=== PATIENT | female | born 1995 | race Caucasian/White ===

== ENCOUNTER → 2018-03-16 16:50 | Outpatient (CLI) | payer BC, SELFPAY ==
[2018-03-16 19:00] LABS: Chlamydia Trachomatis by PCR Negative (Negative); Neisserai gonorrhoeae by PCR Negative (Negative); Probe Check PASS; Sample Adequacy Control PASS; Specimen Processing Control PASS
== END ==
PROVIDERS: Visit Provider Obstetrics & Gynecology
DX: Z11.3 Encounter for screening for infections with a predominantly sexual mode of transmission (principal)
CPT/HCPCS: 87491; 87591

== ENCOUNTER → 2018-03-30 15:31 | Outpatient (CLI) | payer BC, SELFPAY ==
[2018-03-30 16:47] LABS: Color, Urine Yellow (Yellow); Glucose, Dipstick Normal (Normal); Ketone-Dipstick Negative (Negative); Leukocyte Esterase-Dipstick Negative /ul (Negative); Nitrite-Dipstick Negative (Negative); Occult Blood-Urine Negative /ul (Negative); Protein-Dipstick Negative (Negative); Urine Bilirubin Dipstick Negative (Negative); Urine Clarity Clear (Clear); Urine Urobilinogen Normal (Normal)
[2018-03-30 17:10] LABS: Amphetamine Urine VISTA NEGATIVE (<1000 ng/mL); Barbiturate Urine VISTA NEGATIVE (< 200 ng/mL); Benzodiazepine Urine VISTA NEGATIVE (< 200 ng/mL); Cocaine Urine VISTA NEGATIVE (< 300 ng/mL); Ecstacy Urine VISTA NEGATIVE (< 500 ng/mL); Methadone Urine VISTA NEGATIVE (< 300 ng/mL); PCP Urine VISTA NEGATIVE (< 25 ng/mL); THC Urine VISTA NEGATIVE (< 50 ng/mL); Vista UDS pH Range 6
[2018-03-30 17:44] LABS: Absolute Lymphocyte Count 1.38 X10^3/ul (0.83-4.51); Absolute Neutrophil Count 4.5 X10^3/uL (2.0-7.7); Basophil# 0.02 X10^3/uL; Basophil% 0.3 % (0-1); Eosinophil# 0.07 X10^3/uL; Eosinophils% 1.1 % (0-5); Hematocrit 39.4 % (37-47); Hemoglobin 13.6 g/dl (12.0-15.0); Lymphocyte # 1.38 X10^3/ul (4.0); Lymphocyte % 21.8 % (19-41); Mean Corp Hgb Conc 34.5 g/gl (32-36); Mean Corpuscular Hgb 31.1 pg (27.0-32.0); Mean Corpuscular Volume 90.2 fL (81-99); Mean Platelet Vol. 10.9 fl (6.2-12.0); Monocyte# 0.37 X10^3/uL; Monocyte% 5.8 % (0-10); Neutrophil # 4.49 X10^3/uL (2.7-7.7); Neutrophil % 70.8 % (47-70); Platelet Count 195 K/mm3 (150-450); RBC Distribution Width CV 12.8 % (11.6-14.6); RBC Distribution Width SD 41.6 fl (35.1-43.9); Red Blood Count 4.37 M/mm3 (4.2-5.4); White Blood Count 6.3 K/mm3 (4.4-11.0)
[2018-03-30 17:47] LABS: POSITIVE COUNT NO; POSITIVE DIFFERENTIAL NO; POSITIVE MORPHOLOGY NO
[2018-03-30 18:05] LABS: Thyroid Stim Hormone (TSH) 0.52 uIU/mL (0.358-3.74)
[2018-03-30 18:53] LABS: HIV - WCH Non-Reactive (Nonreactive); Rubella IgG 90.3 IU/mL
[2018-04-02 08:44] LABS: HEPATITIS B SURFACE AG Negative (Negative); Hep C Antibodies 0.2 s/co ratio (0.0-0.9)
[2018-04-06 07:38] LABS: Prenatal RPR NONREACTIVE (NONREACTIVE)
== END ==
PROVIDERS: Visit Provider Obstetrics & Gynecology
DX: Z34.81 Encounter for supervision of other normal pregnancy, first trimester (principal)
CPT/HCPCS: 36415; 80307; 81002; 84443; 85025; 86703; 86762; 86803; 87340

== ENCOUNTER → 2018-08-24 | Outpatient (CLI) | payer BC, SELFPAY ==
[2018-08-24 10:50] LABS: Hematocrit 34.4 % (37-47); Hemoglobin 11.4 g/dl (12.0-15.0); Mean Corp Hgb Conc 33.1 g/gl (32-36); Mean Corpuscular Hgb 31.1 pg (27.0-32.0); Mean Corpuscular Volume 93.7 fL (81-99); Mean Platelet Vol. 10.2 fl (6.2-12.0); Platelet Count 177 K/mm3 (150-450); RBC Distribution Width SD 44.2 fl (35.1-43.9); Red Blood Count 3.67 M/mm3 (4.2-5.4); Scan Indicated on CBC? Y/N NO
[2018-08-24 10:56] LABS: Glucose Challenge Gest 1H 50g 92 mg/dL (70-140)
== END | disposition home or self-care (01) ==
LOC: LABSPEC 09:27
PROVIDERS: Visit Provider Obstetrics & Gynecology
DX: Z34.83 Encounter for supervision of other normal pregnancy, third trimester (principal)
CPT/HCPCS: 82950; 85027

== ENCOUNTER → 2018-10-12 | Outpatient (CLI) | payer BC, SELFPAY | END | disposition home or self-care (01) | LOC: LABSPEC 14:00 | PROVIDERS: Visit Provider Obstetrics & Gynecology | DX: Z36.85 Encounter for antenatal screening for Streptococcus B (principal) | CPT/HCPCS: 87081 ==

== ENCOUNTER 2018-11-15 07:00 | Inpatient (IN) | payer BC, SELFPAY ==
--- NOTE | 2018-11-15 07:13 | PCM.HPOB.BLA ---
History and Physical Date of Admission: 11/15/18 OB HISTORY AND PHYSICAL EXAMINATION History of this : 23 yo female Ab0 with EDC 11/08/2018 by Ultrasound, presents to Labor and Delivery for induction of labor, postdates at 41 wk EGA with favorable cervix. care remarkable for : A positive GBS negative. Rubella immune 1.) Soft markers for aneuploidy noted on sono: bilateral choroid plexus cysts, echogenic focus in heart. Debris in stomach -- normal cell free DNA. 2.) Hx of UTI's 3.) MSAFP and CF testing declined 4.) Born with Pectus Excavatum 5.) Allergic to LATEX!! Pertinent Past Medical History: None. Allergies: Latex Medications: During - ferrous gluconate 324 mg (37.5 mg iron) tablet; 28 mg iron-800 mcg tablet Review of Systems: Non-contributory PHYSICAL EXAMINATION General Appearance: 23 yo female in no acute distress Vital Signs: AF, VSS Lungs: regular rate and rhythm. Breasts: deferred Abdomen: gravid Pelvis: Cervix: 4/80/soft/midpostion / -2 AROM clear fluid. Presentation: cephalic AGA Movement: present Very active , audible movement. Heart: UCs q 6- 9 min or so. One deceleration to 120s noted on initial monitor placement. Active FM. FHR 150-160s with avg variability Accels . Category I tracing since. Impression /Plan: Intrauterine . 41 wk induction of labor. AROM Clear fluid. Begin Pitocin-- started at 2 mIU/min Watch progress, descent, tolerance of labor. Plans no epidural at this point. H and P generated at time of patient admission, exam. See Progress notes for changes. Pierre Medina MD 11/15/18 [id number]
[2018-11-15 07:27] VITALS: BMI 22.8
[2018-11-15] MEDS: Lactated Ringers 1,000 ML 50 ML IV (07:40)
[2018-11-15] MEDS: Oxytocin 30 units/NS 500 ml 30 UNITS/500 ML IV.SOLN IV (08:00)
[2018-11-15 08:04] LABS: Absolute Lymphocyte Count 1.02 X10^3/uL (0.83-4.51); Absolute Neutrophil Count 10.7 X10^3/uL (2.0-7.7); Basophil# 0.02 X10^3/uL; Basophil% 0.2 % (0-1); Eosinophil# 0.12 X10^3/uL; Hematocrit 38.2 % (37-47); Hemoglobin 12.9 g/dL (12.0-15.0); Lymphocyte # 1.02 X10^3/ul (4.0); Lymphocyte % 8.3 % (19-41); Mean Corp Hgb Conc 33.8 g/dL (32-36); Mean Corpuscular Hgb 31.9 pg (27.0-32.0); Mean Corpuscular Volume 94.6 fL (81-99); Mean Platelet Vol. 11.2 fl (6.2-12.0); Monocyte# 0.43 X10^3/uL; Monocyte% 3.5 % (0-10); NRBC Flagged by Analyzer 0 % (0-5); Neutrophil % 86.7 % (47-70); Platelet Count 139 K/mm3 (150-450); RBC Distribution Width CV 14.6 % (11.6-14.6); RBC Distribution Width SD 50.4 fl (35.1-43.9); Red Blood Count 4.04 M/mm3 (4.2-5.4); White Blood Count 12.3 K/mm3 (4.4-11.0)
--- NOTE | 2018-11-15 12:11 | PCM.PN.BLA ---
Progress Note LABOR PROGRESS NOTE Feeling more UCs Declines epidural Back massage, essential oils. AVSS pitocin at 4 mIU/min EFM 150-160s avg variability Accels. UCs q 3-4 mins CX: 6/-1 per RN check at 1130 A/P: 41 wk induction postdates. Adequate progress, Continue labor. Category I tracing.
[2018-11-15] MEDS: Nalbuphine 10 MG/ML Ampul IV (12:31)
[2018-11-15] MEDS: Ondansetron 4 MG/2 ML Vial IV (12:31)
[2018-11-15] MEDS: proCHLORPERazine 10 MG/2 ML Vial IV (14:40)
--- NOTE | 2018-11-15 15:33 | PCM.PN.BLA ---
Progress Note LABOR PROGRESS NOTE Painful Nitrous and breathing AVSS pitocin EFM 130-140s avg variability Accels. UCs q 3-4 mins CX: thin lip to R side, now lying on R side -1 no urge to push. A/P: 41 wk induction AROM Pitocin progress to nearly complete. Continue labor Category I tracing.
[2018-11-15] MEDS: Lactated Ringers 1,000 ML 200 ML IV (15:57)
[2018-11-15] MEDS: Lactated Ringers 500 ML 999 ML IV ×2 (17:33→20:19)
[2018-11-15] MEDS: fentaNYL-bupivacaine (epidural) 100 ML BAG EPIDURAL (18:02)
--- NOTE | 2018-11-15 18:41 | PN.OBGYN_ITS ---
Subjective: Comfortable and dozing with epidural Objective: AVSS FHTs 145 with moderate variability and acels UCs Q 2-4 minutes, averaging 90 seconds, palpate strong Cervical exam per RN at approx 1800 -1 Pitocin at 6 mu - Physical Exam General: No apparent distress HEENT: PERRLA, EOMI Oral: Moist Mucosa Neck: Supple Lungs: Clear to auscultation Cardiovascular: Regular rate, Regular Rhythm Abdomen: Bowel Sounds Present, Soft, Non Tender, Gravid Extremities: No edema, Capillary Refill Less than 3 Seconds, Peripheral Pulses Normal - Dtrs 2+ bilaterally upper and lower extremities Skin: No rashes, No breakdown Musculoskeletal: No Tenderness to Palpation of Joints or Extremities Lymphatic: No Cervical, Supraclavicular, or Inguinal Adenopathy Neurological: Cranial nerves II-XII grossly intact Psych/Mental Status: Normal Affect, Appropriate Weight: 154 lb 8 oz Body Mass Index (BMI) 22.8 Intake and Output for Last 24 Hours 11/13/18 11/14/18 11/15/18 23:59 23:59 23:59 Intake Total 3010.60 / 3010.60 Output Total 1700 / 1700 Balance 1310.60 / 1310.60 Laboratory Tests Past 24 Hrs 11/15/18 11/15/18 07:40 07:40 WBC 12.3 H RBC 4.04 L Hgb 12.9 Hct 38.2 MCV 94.6 MCH 31.9 MCHC 33.8 RDW Std Deviation 50.4 H RDW Coeff of Brooks 14.6 Plt Count 139 L MPV 11.2 Immature Gran % (Auto) 0.300 Neut % (Auto) 86.7 H Lymph % (Auto) 8.3 L Nicholas % (Auto) 3.5 Eos % (Auto) 1.0 Baso % (Auto) 0.2 Absolute Neuts (auto) 10.7 H Absolute Lymphs (auto) 1.02 Nucleated RBC % 0 Blood Type A POSITIVE Antibody Screen NEGATIVE Medical Necessity - Tobacco Use Smoking Status: Never smoker Assessment/Plan Assessment: Active labor Adequate pain control Cat 1 FHTs Adequate contractions Plan: Allow to rest and labor down for now per patient request Close monitoring Anticipate vaginal
--- NOTE | 2018-11-15 20:53 | PCM.PN.OB ---
Subjective: Comfortable with epidural Objective: AVSS FHT baseline 160, moderate variability, with accels, no decels UCs Q 2-4 minutes, averaging 90 seconds long, palpate firm VE: 9/100/-1, much caput Pitocin at 4 mu - Physical Exam Weight: 154 lb 8 oz Body Mass Index (BMI) 22.8 Intake and Output for Last 24 Hours 11/13/18 11/14/18 11/15/18 23:59 23:59 23:59 Intake Total 3448.33 / 3448.33 Output Total 1700 / 1700 Balance 1748.33 / 1748.33 Laboratory Tests Past 24 Hrs 11/15/18 11/15/18 07:40 07:40 WBC 12.3 H RBC 4.04 L Hgb 12.9 Hct 38.2 MCV 94.6 MCH 31.9 MCHC 33.8 RDW Std Deviation 50.4 H RDW Coeff of Brooks 14.6 Plt Count 139 L MPV 11.2 Immature Gran % (Auto) 0.300 Neut % (Auto) 86.7 H Lymph % (Auto) 8.3 L Gulf % (Auto) 3.5 Eos % (Auto) 1.0 Baso % (Auto) 0.2 Absolute Neuts (auto) 10.7 H Absolute Lymphs (auto) 1.02 Nucleated RBC % 0 Blood Type A POSITIVE Antibody Screen NEGATIVE Medical Necessity - Tobacco Use Smoking Status: Never smoker Assessment/Plan Assessment: Minimal progress in labor over 5 1/2 hours Cat 1 FHTs Plan: Discussed progress with patient and spouse Updated Dr. Cast Continue titrating pitocin to maintain adequate labor, maintaining safety Will attempt a trial of pushing Potential for surgical
--- NOTE | 2018-11-15 21:52 | PCM.PN.OB ---
Subjective: Comfortable with epidural, able to feel contractions enough to push effectively Objective: AVSS FHTs: 150 baseline, moderate variability with accels and periodic variable decels UCs: Q 2-4 minutes, palpate firm; resting tone soft VE: anterior lip/100/0 Pitocin at 6 mu - Physical Exam Weight: 154 lb 8 oz Body Mass Index (BMI) 22.8 Intake and Output for Last 24 Hours 11/13/18 11/14/18 11/15/18 23:59 23:59 23:59 Intake Total 3958.46 / 3958.46 Output Total 1700 / 1700 Balance 2258.46 / 2258.46 Laboratory Tests Past 24 Hrs 11/15/18 11/15/18 07:40 07:40 WBC 12.3 H RBC 4.04 L Hgb 12.9 Hct 38.2 MCV 94.6 MCH 31.9 MCHC 33.8 RDW Std Deviation 50.4 H RDW Coeff of Brooks 14.6 Plt Count 139 L MPV 11.2 Immature Gran % (Auto) 0.300 Neut % (Auto) 86.7 H Lymph % (Auto) 8.3 L Coleman % (Auto) 3.5 Eos % (Auto) 1.0 Baso % (Auto) 0.2 Absolute Neuts (auto) 10.7 H Absolute Lymphs (auto) 1.02 Nucleated RBC % 0 Blood Type A POSITIVE Antibody Screen NEGATIVE Medical Necessity - Tobacco Use Smoking Status: Never smoker Assessment/Plan Assessment: Effective pushing with significant descent of vertex Category 2 FHTs Adequate contractions Plan: Placed in Sim's position to help reduce anterior lip Resume pushing in 15-20 minutes Continue titrating pitocin to maintain adequate labor Anticipate vaginal
[2018-11-15] MEDS: Lactated Ringers 1,000 ML 196 ML IV (22:05)
[2018-11-15] MEDS: Oxytocin 30 units/NS 500 ml 30 UNITS/500 ML IV.SOLN 334 UNITS IV (23:50)
[2018-11-16] VITALS (28 sets, daily range): BP systolic 98–132; BP diastolic 49–83; PULSE 81–171; RESP 14–20; TEMP 36.2–37.7; O2SAT 96–99
--- NOTE | 2018-11-16 | PCM.OPRPT ---
Vaginal Delivery Maternal Presentation: Medically Indicated Induction Method of Induction: Pitocin, Amniotomy Medical Reason for Induction: Post term Amniotic Membrane Rupture Type: Artificial Amniotic Fluid Description: Clear Final SHAAN: 11/08/18 Final SHAAN Source: US <20 weeks Gestational age: 41 Weeks and 0 Days [place] doctor who attended delivery (if requested by OB): Kristan Luna Postterm Date of Procedure: 11/15/18 Pre-Operative Diagnosis: IUP, Postdate Post-Operative Diagnosis: IUP, Postdate Surgery/ Procedure Performed: Vacuum Assisted Vaginal Delivery Type of Anesthesia: Epidural Description of Procedure: Spontaneous vaginal delivery of a viable female infant with Apgars of 8/9 from an occiput anterior presentation with clear amniotic fluid and normal three-vessel placenta. Cord around the neck body and legs loose. No episiotomy. Second-degree midline laceration repaired with 3-0 Rapide suture under epidural. 2 cm left vaginal abrasion not repaired. Kiwi vacuum used x3 gentle pulls from low outlet to expedite delivery of the head after 2-1/2 hours of pushing and increasing maternal fatigue. No pop offs. Sponges okay. Delivery physician: Aston Cast MD.; labor attended by Sandie Pretty CNM. Presentation: Vertex Placental Delivery Description: Spontaneous Placenta Disposition: [facility] Cord Vessel Description: 3 Vessels Cord Gases drawn per routine: ABG Cord Entanglement: Around neck x 1, loose, - - Around body x1 and legs x2 loose Estimated Blood Loss: 400 cc Infant A gender: Female (1 minute): 8 (5 minute): 9 Episiotomy Description: None Laceration: Midline, 2nd degree Medications given after delivery: IV Pitocin Complications: None
--- NOTE | 2018-11-16 00:08 | DCINST_ITS ---
Discharge Diet: No Restrictions Discharge Activity: May Shower, May Take a Tub Bath May resume sexual activity in: 4-6 weeks Additional Activity Instructions:: Nothing in the vagina for 4-6 weeks. You may return to work/school in 6 weeks. Call your doctor if you observe: Fever of 101 or Higher, Inability to urinate, Inability to have a bowel movement, Using more than one pad per hour Additional Instructions: If you experience any of the following, contact your healthcare provider. * Bleeding that soaks a pad every hour for 2 hours * Unrelieved incision or abdominal pain * Swelling, redness, discharge or bleeding from your incision or episiotomy site * Your incision begins to separate * Problems urinating (including inability to urinate or burning while urinating). * Visual changes * Severe headache * Flu-like symptoms * Pain or redness in one of both of your breasts * Pain, warmth, tenderness or swelling in your legs, especially the calf area * Frequent nausea and vomiting * Symptoms of depression or anxiety If you experience any of the following, call 911 or go to the nearest Emergency Room. * Chest pain * Problems breathing * Seizure activity * Partial or complete paralysis of a body part, slurred speech, weakness or drooping of the face, or a sudden inability to walk or hold your balance Allergies/Adverse Reactions: Allergies latex Allergy (Unknown, Verified 11/15/18 07:50) Rash Medications to take at Discharge Ferrous Gluconate 324 mg PO DAILY 11/15/18 Tablet 1 tab PO DAILY 11/15/18 Please Follow Up With: Mary Medina MD - [phone] When: Call to make an appointment with your doctor in 6 weeks. Primary Care Physician: Care Physician,No Primary [Primary Care Provider] - Test Results: Test results from this visit will be discussed in further detail at your follow- up appointment, if applicable.
--- NOTE | 2018-11-16 00:08 | PCM.DCVAG ---
Discharge Diet: No Restrictions Discharge Activity: May Shower, May Take a Tub Bath May resume sexual activity in: 4-6 weeks Additional Activity Instructions:: Nothing in the vagina for 4-6 weeks. You may return to work/school in 6 weeks. Call your doctor if you observe: Fever of 101 or Higher, Inability to urinate, Inability to have a bowel movement, Using more than one pad per hour Additional Instructions: If you experience any of the following, contact your healthcare provider. Bleeding that soaks a pad every hour for 2 hours Unrelieved incision or abdominal pain Swelling, redness, discharge or bleeding from your incision or episiotomy site Your incision begins to separate Problems urinating (including inability to urinate or burning while urinating). Visual changes Severe headache Flu-like symptoms Pain or redness in one of both of your breasts Pain, warmth, tenderness or swelling in your legs, especially the calf area Frequent nausea and vomiting Symptoms of depression or anxiety If you experience any of the following, call 911 or go to the nearest Emergency Room. Chest pain Problems breathing Seizure activity Partial or complete paralysis of a body part, slurred speech, weakness or drooping of the face, or a sudden inability to walk or hold your balance Allergies/Adverse Reactions: Allergies latex Allergy (Unknown, Verified 11/15/18 07:50) Rash Medications to take at Discharge Ferrous Gluconate 324 mg PO DAILY 11/15/18 Tablet 1 tab PO DAILY 11/15/18 Please Follow Up With: Mary Medina MD - [phone] When: Call to make an appointment with your doctor in 6 weeks. Primary Care Physician: Care Physician,No Primary [Primary Care Provider] - Test Results: Test results from this visit will be discussed in further detail at your follow-up appointment, if applicable.
[2018-11-16] MEDS: Lactated Ringers 500 ML IV.SOLN. 1000 ML IV (02:45)
--- NOTE | 2018-11-16 02:48 | EKG12_ITS ---
Test Reason : SYNCOPE Blood Pressure : / mmHG Vent. Rate : 108 BPM Atrial Rate : 108 BPM P-R Int : 138 ms QRS Dur : 100 ms QT Int : 302 ms P-R-T Axes : 052 081 027 degrees QTc Int : 404 ms Sinus tachycardia Possible Left atrial enlargement Incomplete right bundle branch block ST & T wave abnormality, consider anterior ischemia Abnormal ECG No previous ECGs available Confirmed by JANIE NUÑEZ, ALECIA ([id number]), school photograph editor JUAN SCHAEFFER ([id number]) on 11/19/2018 4:10:36 PM Referred By: Mary Medina Confirmed By:NAY LIMA MD
--- NOTE | 2018-11-16 03:06 | ECHOD_ITS ---
Reason For Study: SYNCOPE Procedure This was a 2D Doppler, Color Flow transthoracic echocardiogram. The study was technically difficult. Exam performed portable in patient room. Left Ventricle Normal LV size. The estimated ejection fraction is 65 %. No evidence for diastolic dysfunction. No regional wall motion abnormalities noted. Right Ventricle Normal RV size. Normal systolic function. Atria Normal left atrium. Normal right atrium. No doppler evidence for ASD. Mitral Valve There is no mitral valve stenosis. No mitral valve insufficiency. Tricuspid Valve There is no tricuspid stenosis. Normal pulmonary artery pressure. Trivial tricuspid valve insufficiency. Aortic Valve Trisinus/trileaflet aortic valve. There is no aortic stenosis. No aortic valve insufficiency. Pulmonic Valve There is no pulmonic valvular stenosis. No pulmonic valve insufficiency. Great Vessels Normal aortic root. Pericardium/Pleural No pericardial effusion. MMode/2D Measurements & Calculations LVIDd: 4.9 cm IVSd: 0.67 cm Ao root diam: 2.5 cm LVIDs: 3.6 cm LVPWd: 0.77 cm RVDd: 3.1 cm FS: 26.9 % LAV(MOD-sp4): 52.2 ml LVAd ap4: 37.7 cm2 SV(MOD-sp4): 70.2 ml EDV(MOD-sp4): 127.8 ml EDV(sp4-el): 134.0 ml LVAs ap4: 22.7 cm2 ESV(MOD-sp4): 57.6 ml ESV(sp4-el): 56.8 ml EF(MOD-sp4): 54.9 % EF(sp4-el): 57.6 % SV(sp4-el): 77.2 ml LA A4 area: 20.5 cm2 LA dimension(2D): 3.4 cm RA A4 area: 12.0 cm2 Time Measurements MV dec time: 0.14 sec Doppler Measurements & Calculations MV E max oz: 67.6 cm/sec Lat Peak E' Oz: 20.8 cm/sec Med Peak E' Oz: 11.4 cm/sec MV A max oz: 54.8 cm/sec E/E' lat: 3.2 E/E' med: 5.9 MV E/A: 1.2 Ao V2 max: 152.1 cm/sec LV V1 max: 133.6 cm/sec PA V2 max: 111.5 cm/sec Ao max P.3 mmHg LV V1 max P.1 mmHg TR max oz: 247.4 cm/sec TR max P.6 mmHg Interpretation Summary The estimated ejection fraction is 65 %. No evidence for diastolic dysfunction. Ordering Physician: Laura Finney Referring Physician: Mary Medina Performed By: Nasra Coker, ANDER, RVT
--- NOTE | 2018-11-16 03:08 | CCHN_ITS ---
Hospitalist Note Rapid response note: Rapid response called secondary to patient's being on the toilet and staff noting that she lost consciousness, potentially her head little to the side they state that her eyes did roll upwards and there is questionable arm shaking activity however she quickly resumed consciousness and was taken back to bed and had no confusion or any other concerning neurological symptoms. She did not use the restroom (lose control of bowel or bladder), bite her tongue or any other concerning activities consistent with seizure. Staff notes that she is having normal lochia. EBL with delivery was unremarkable. She had been induced the day prior with Pitocin and rupture of membranes secondary to postdates although staff is noting 41-week and did have an epidural. Per review of staff she received a total of approximately 3500 cc IV fluids over that duration of time. Patient last oral intake was minimal and at approximately 2 AM. Physical Examination: General: awake, alert, oriented x 3 and cooperative, seated upright in the [facility] bed in no apparent distress. Skin: normal color, turgor, no icterus, cyanosis. HEENT: AT/NC, EOMI, PERRLA, mildly dry MM, no carotid bruits or JVD noted. Lungs: CTA bilaterally, moderate effort, mild decrease BL bases, no rales, ronchi or wheezing. Heart: Tachycardic with regular rhythm; no gallop, rub audible. Abdomen: soft, expected tenderness to palpation of the fundus, firming, mildly distended as expected recent vaginal delivery, normal bowel sounds. Extremities: no cyanosis, clubbing, or edema. Neurological: patient awake, alert, oriented x 3; cognitive function intact; pupils equally reactive to light and accomodation; cranial nerves II-XII grossly normal, moving all 4 extremities, no focal deficits, strength moderately to severely global decrease given recent syncopal events and delivery. Psychiatric: affect appears fatigued, no acute evidence of depressive or anxiety feelings. Requested that plush brusher be updated and evaluate patient also. CBC, BMP, troponin, mag, EKG, echocardiogram requested. Vital signs obtained and stable aside from mild tachycardia with request for aggressive initiation of 1 L fluid bolus. Blood sugar not concerning. Patient noting feeling weak but improved with continued plan for close observation. CONSULTATION PHYSICIAN NOTE: Chief Complaint: Syncopal event. The patient is a 23 y/o f w/ no marked PMHx who presents to the [facility] on 11/[facility]18 as G1, P0 Ab0 with EDC 11/08/18 by ultrasound noted to be postdates at 41-week EGA, GBS negative, rubella immune, blood type a positive for induction of labor. Please see rapid response note above. Labs: Rapid response CBC with WBC 18.2, hemoglobin 11.3, platelet 133 with left shift Rapid response BMP with glucose 125 Allergies: Latex. Home medications: Ferrous gluconate 324 mg p.o. daily vitamin with iron 1 p.o. daily Social Hx: Patient was that her spouse, no tobacco, alcohol or illicit drug usage. Admission Review of Systems: CONSTITUTIONAL: No weight loss, fever, chills, + weakness or fatigue. HEENT: Eyes: No visual loss, blurred vision, double vision or yellow sclerae. Ears, Nose, Throat: No hearing loss, sneezing, congestion, runny nose or sore throat. SKIN: No rash or itching, lesions, wounds. CARDIOVASCULAR: Positive syncopal events. No chest pain, chest pressure or chest discomfort, palpitations, edema. RESPIRATORY: No shortness of breath, cough or sputum, wheezing, hemoptysis. GASTROINTESTINAL: + Expected lower abdominal discomfort status post recent delivery. No anorexia, nausea, vomiting or diarrhea, melena, BRBPR. GENITOURINARY:+ Expected lochia status post recent vaginal delivery. No dysuria, frequency, urgency or retention. NEUROLOGICAL: + Syncopal event, questionable initial concern for staff for seizure activity but per history low suspicion and no postictal phase, no seizure history, no headache, dizziness, syncope, paralysis, ataxia, numbness or tingling in the extremities, focal weakness, change in bowel or bladder control, seizure. MUSCULOSKELETAL: No muscle, back pain, joint pain or stiffness. HEMATOLOGIC: + anemia, bleeding or bruising. LYMPHATICS: No enlarged nodes. No history of splenectomy. PSYCHIATRIC: No history of depression or anxiety. ENDOCRINOLOGIC: No reports of sweating, cold or heat intolerance. No polyuria or polydipsia. ALLERGIES: No history of asthma, hives, eczema or rhinitis. Admission VS: As noted below. Physical Examination: See physical examination above. Assessment and Plan: The patient is a 23 y/o f w/ no marked PMHx who presents to the [facility] on 11/15/18 as G1, P0 Ab0 with EDC 11/08/18 by ultrasound noted to be postdates at 41-week EGA, GBS negative, rubella immune, blood type a positive for induction of labor with episode of questionable syncope with rapid response initiated. (1) ? Syncopal Event versus atypical seizure activity: Unclear etiology, lower suspicion for seizure activity given not postictal. Suspect likely syncope secondary to recent prolonged labor with induction with Pitocin, poor intake. EKG with sinus tachycardia with nonspecific changes with plan for repeat EKG in a.m. CBC, BMP as expected with WBC elevation likely secondary to stress response, troponin pending. Will maintain on fall precautions, obtain orthostatic VS and increase hydration if appropriate. Given unclear event low threshold to obtain ECHO. Code Visit Inpatient E&M: 57340 Subs Hosp L3
[2018-11-16 03:11] LABS: Absolute Lymphocyte Count 0.82 X10^3/uL (0.83-4.51); Absolute Neutrophil Count 16.8 X10^3/uL (2.0-7.7); Basophil# 0.02 X10^3/uL; Basophil% 0.1 % (0-1); Eosinophil# 0.01 X10^3/uL; Eosinophils% 0.1 % (0-5); Hematocrit 33.5 % (37-47); Hemoglobin 11.3 g/dL (12.0-15.0); Lymphocyte # 0.82 X10^3/ul (4.0); Lymphocyte % 4.5 % (19-41); Mean Corp Hgb Conc 33.7 g/dL (32-36); Mean Corpuscular Hgb 31.8 pg (27.0-32.0); Mean Corpuscular Volume 94.4 fL (81-99); Mean Platelet Vol. 11.2 fl (6.2-12.0); Monocyte# 0.42 X10^3/uL; Monocyte% 2.3 % (0-10); NRBC Flagged by Analyzer 0 % (0-5); Neutrophil # 16.81 X10^3/uL (2.7-7.7); Neutrophil % 92.5 % (47-70); Platelet Count 133 K/mm3 (150-450); RBC Distribution Width CV 14.6 % (11.6-14.6); RBC Distribution Width SD 50.9 fl (35.1-43.9); Red Blood Count 3.55 M/mm3 (4.2-5.4); White Blood Count 18.2 K/mm3 (4.4-11.0)
--- NOTE | 2018-11-16 03:13 | NURSING ---
Late entry: at 0200 patient assisted to sitting position at side of bed with assistance from edwin RN and Larisa RN. Patient denies feeling of dizziness, light-headedness. Patient then stood at bedside and alternately lifted both feet off floor. Patient then reported that she felt like she was under water. Patient returned to bed, given orange juice and yogurt. Patient resting and will try again to ambulate patient around 0230.
[2018-11-16 03:15] LABS: Anion Gap 10 (5-15); BUN 6 mg/dL (7-18); BUN/Creat Ratio 7.6 RATIO (10-20); Calcium,Total 8.2 mg/dL (8.5-10.1); Chloride 107 mmol/L (98-107); Creatinine, Serum 0.79 mg/dL (0.55-1.02); EST Glomerular Filtration Rate 93 mL/min (>60); Est Glom Filt Rate - Afr Amer 113 mL/min (>60); Estimated Creatinine Clearance 113.77 ml/min; Glucose 125 mg/dL (74-106); Potassium 3.7 mmol/L (3.5-5.1); Sodium Level 139 mmol/L (136-145)
--- NOTE | 2018-11-16 03:38 | NURSING ---
Late entry: at 0235 patient up to side of bed with assistance from this RN and Larisa RN. Patient stood at side of bed and denies any dizzy/light-headedness and denies feeling as she did before when standing at bedside. Patient ambulated to bathroom with little assistance and sat on toilet. While sitting on toilet, patient states that her ears felt clogged again. This RN stood at patient's side and patient rested against hand rail beside toilet. Larisa back into bathroom to assist and patient then began to lean to left side and patient's eyes rolled back, pupils became fixed and dilated and patient had jerking motions. Patient then began to make grunting sounds as she was jerking. Additional nurses to room and smelling salts activated and held to patient's nares. Rapid response called.
[2018-11-16 03:42] LABS: Magnesium 1.5 mg/dL (1.6-2.6)
[2018-11-16] MEDS: 0.9% Normal Saline 1,000 ML 150 ML IV ×2 (03:57→05:55)
--- NOTE | 2018-11-16 04:06 | NURSING ---
This RN activated TECHNICAL APPLICATIONS SPECIALIST @0240 via phone after witnessing patient loose consiousness while sitting on toliet following kiwi assisted delivery. Dr Cast informed of TECHNICAL APPLICATIONS SPECIALIST per medical charge entry specialist at@[phone]. Within a few seconds patient alert and oriented. Assisted back to bed via nursing staff. Dr Finney, ER nurses, general warehouse associate Mita in room at this time. CBC, BMP, EKG all collected and ECHO ordered. LR bolus initiated @999ml/hr. Patient denies pain or tenderness. Alert and oriented x3, easy respirations on room air. Vitals @251 130/78 HR115 Resp16 O2 100% on room air. Fundus firm with small amount of bleeding present. Significant other remains on couch at bedside. Moral support given per property staff accountant. EKG Sinus tach. Vitals@ 255 127/74 HR107 RESP16 100% on room air. Dr Cast updated via medical charge entry specialist of patient condition and Dr Finney requesting patient to be evaluated per OB. Aware that Dr Cast states he will be in to evaluate during morning rounds. No further orders recieved at this time.
[2018-11-16 04:56] LABS: Bedside Glucose 124 mg/dL (70-110)
[2018-11-16] MEDS: 0.9% Normal Saline 1,000 ML 999 ML IV (04:57)
--- NOTE | 2018-11-16 05:55 | EKG12_ITS ---
Test Reason : AM EKG Blood Pressure : / mmHG Vent. Rate : 112 BPM Atrial Rate : 112 BPM P-R Int : 140 ms QRS Dur : 104 ms QT Int : 304 ms P-R-T Axes : 076 085 021 degrees QTc Int : 414 ms Sinus tachycardia Possible Left atrial enlargement Incomplete right bundle branch block T wave abnormality, consider anterior ischemia Abnormal ECG When compared with ECG of 16-NOV-2018 02:58, MANUAL COMPARISON REQUIRED, DATA IS UNCONFIRMED Confirmed by JANIE NUÑEZ, ALECIA ([id number]), editor dictionary JUAN SCHAEFFER ([id number]) on 11/19/2018 4:11:41 PM Referred By: Mary Medina Confirmed By:NAY LIMA MD
--- NOTE | 2018-11-16 08:32 | PCM.PN.OB ---
Subjective: PPD #1 Delivered just prior to MN Doing well now. Vagal event at approx 3 am and REGIONAL CLINICAL DIRECTOR called. Echo to be done today. Labs with low calcium and magnesium, replacement being given. Does not remember passing out. No concerns now. Tired. Baby doing well. Objective: Lying semi-recumbent in bed. NAD - Physical Exam General: Alert, Oriented x3, Cooperative, No apparent distress HEENT: Atraumatic, EOMI Abdomen: Soft - fundus firm NT inferior to umbilicus Neurological: Cranial nerves II-XII grossly intact Psych/Mental Status: Normal Affect Vital Signs Temp Pulse Resp BP Pulse Ox 98.6 F 108 H 14 112/60 99 11/16/18 07:31 11/16/18 07:31 11/16/18 07:31 11/16/18 07:31 11/16/18 07:31 Oxygen Delivery Method Room Air Weight: 70.08 kg Body Mass Index (BMI) 22.8 Orthostatic Vital Signs Start: 11/16/18 04:27 Freq: q24h Status: Active Protocol: Activity Type Activity Date Activity User E-Sign Co-Sign Detail Recorded Client Recorded Date Recorded By Document 11/16/18 04:30 [id number] [id number] 11/16/18 04:30 WLS 11/16/18 04:30 Orthostatic Vitals Sitting -Blood Pressure (90/60-120/80) 113/49 L -Extremity Use Right Arm -Pulse Rate (60-100) 171 H Intake and Output for Last 24 Hours 11/14/18 11/15/18 11/16/18 23:59 23:59 23:59 Intake Total 4720.73 / 4720.73 2211.56 / 2211.56 Output Total 2250 / 2250 1750 / 1750 Balance 2470.73 / 2470.73 461.56 / 461.56 Laboratory Tests Past 24 Hrs 11/15/18 11/16/18 11/16/18 07:40 02:54 02:54 WBC 18.2 H RBC 3.55 L Hgb 11.3 L Hct 33.5 L MCV 94.4 MCH 31.8 MCHC 33.7 RDW Std Deviation 50.9 H RDW Coeff of Brooks 14.6 Plt Count 133 L MPV 11.2 Immature Gran % (Auto) 0.500 Neut % (Auto) 92.5 H Lymph % (Auto) 4.5 L [place] % (Auto) 2.3 Eos % (Auto) 0.1 Baso % (Auto) 0.1 Absolute Neuts (auto) 16.8 H Absolute Lymphs (auto) 0.82 L Nucleated RBC % 0 Sodium 139 Potassium 3.7 Chloride 107 Carbon Dioxide 22.0 Anion Gap 10 BUN 6 L Creatinine 0.79 Estim Creat Clear Calc 113.77 Est GFR (MDRD) Af Amer 113 Est GFR (MDRD) Non-Af 93 BUN/Creatinine Ratio 7.6 L Glucose 125 H Calcium 8.2 L Magnesium Troponin I Blood Type A POSITIVE Antibody Screen NEGATIVE 11/16/18 02:54 WBC RBC Hgb Hct MCV MCH MCHC RDW Std Deviation RDW Coeff of Brooks Plt Count MPV Immature Gran % (Auto) Neut % (Auto) Lymph % (Auto) [place] % (Auto) Eos % (Auto) Baso % (Auto) Absolute Neuts (auto) Absolute Lymphs (auto) Nucleated RBC % Sodium Potassium Chloride Carbon Dioxide Anion Gap BUN Creatinine Estim Creat Clear Calc Est GFR (MDRD) Af Amer Est GFR (MDRD) Non-Af BUN/Creatinine Ratio Glucose Calcium Magnesium 1.5 L Troponin I < 0.015 Blood Type Antibody Screen POC Glucose 11/16/18 02:50 POC Glucose 124 H Medical Necessity - Tobacco Use Smoking Status: Never smoker Assessment/Plan PPD#1 Vacuum assisted vaginal delivery Vasovagal event Low calcium and low magnesium , replacement given ECHO as planned to fully evaluate. S/L IV today and continue routine care. Encouraged regular snacks and good PO intake Reviewed physiologic changes with recent delivery.
[2018-11-16] MEDS: 0.9% Saline Lock 10 ML Syringe IV (10:10)
[2018-11-16] MEDS: Ibuprofen 600 MG Tablet PO ×2 (11:45→17:54)
--- NOTE | 2018-11-16 14:29 | PN_ITS ---
Subjective: Patient seen and examined. Denies further episodes of syncope. Denies dizziness upon standing. - Physical Exam General: Alert, Oriented x3, Cooperative HEENT: Atraumatic, PERRLA, EOMI, Normocephalic Neck: Supple, No JVD, Negative Carotid Bruits Lungs: Clear to auscultation, Normal air movement Cardiovascular: Regular rate, Regular Rhythm, Normal S1, Normal S2, No murmurs Abdomen: Bowel Sounds Present, Soft, Non Tender, Non-Distended Extremities: No clubbing, No cyanosis, No edema, Capillary Refill Less than 3 Seconds Skin: No rashes, No breakdown Musculoskeletal: No Tenderness to Palpation of Joints or Extremities Neurological: Cranial nerves II-XII grossly intact, Neuro grossly intact Psych/Mental Status: Normal Affect, Appropriate Vital Signs Temp Pulse Resp BP Pulse Ox 97.2 F L 85 14 114/66 99 11/16/18 13:40 11/16/18 13:40 11/16/18 13:40 11/16/18 13:40 11/16/18 07:31 Oxygen Delivery Method Room Air Weight: 154 lb 8 oz Body Mass Index (BMI) 22.8 Orthostatic Vital Signs Start: 11/16/18 04:27 Freq: q24h Status: Active Protocol: Activity Type Activity Date Activity User E-Sign Co-Sign Detail Recorded Client Recorded Date Recorded By Document 11/16/18 10:18 [email or web address] [id number] 11/16/18 10:18 KW 11/16/18 10:18 Orthostatic Vitals Standing -Blood Pressure (90/60-120/80) 110/72 -Extremity Use Right Arm -Pulse Rate (60-100) 138 H Intake and Output for Last 24 Hours 11/14/18 11/15/18 11/16/18 23:59 23:59 23:59 Intake Total 4720.73 / 4720.73 2969.06 / 2969.06 Output Total 2250 / 2250 1750 / 1750 Balance 2470.73 / 2470.73 1219.06 / 1219.06 Laboratory Tests Past 24 Hrs 11/16/18 11/16/18 11/16/18 02:54 02:54 02:54 WBC 18.2 H RBC 3.55 L Hgb 11.3 L Hct 33.5 L MCV 94.4 MCH 31.8 MCHC 33.7 RDW Std Deviation 50.9 H RDW Coeff of Brooks 14.6 Plt Count 133 L MPV 11.2 Immature Gran % (Auto) 0.500 Neut % (Auto) 92.5 H Lymph % (Auto) 4.5 L [place] % (Auto) 2.3 Eos % (Auto) 0.1 Baso % (Auto) 0.1 Absolute Neuts (auto) 16.8 H Absolute Lymphs (auto) 0.82 L Nucleated RBC % 0 Sodium 139 Potassium 3.7 Chloride 107 Carbon Dioxide 22.0 Anion Gap 10 BUN 6 L Creatinine 0.79 Estim Creat Clear Calc 113.77 Est GFR (MDRD) Af Amer 113 Est GFR (MDRD) Non-Af 93 BUN/Creatinine Ratio 7.6 L Glucose 125 H Calcium 8.2 L Magnesium 1.5 L Troponin I < 0.015 POC Glucose 11/16/18 02:50 POC Glucose 124 H Medical Necessity - Tobacco Use Smoking Status: Never smoker Assessment/Plan 1. Vasovagal syncope-no further episodes. EKG without acute changes. Troponin negative. Orthostatic vitals negative. Echocardiogram with EF 65%. Recommend continued IV fluids. Discussed with patient work-up findings and explained presumed vasovagal syncope. 2. Status post vacuum-assisted vaginal delivery PPD #1 DVT prophylaxis- per MAGISTRATE ASSISTANT. This patient was seen by TRISTIAN Muller under the supervision of Dr. Norton. Hospitalist services will sign off at this time. Thank you for consult, please do not hesitate to contact us if further issues arise.
[2018-11-16] MEDS: Acetaminophen 500 MG Tablet 1000 MG PO (16:04)
--- NOTE | 2018-11-16 18:00 | NURSING ---
Mother had emesis after iv came out, iv was restarted and zofran given.
[2018-11-17] MEDS: Ibuprofen 600 MG Tablet PO ×3 (01:19→15:03)
[2018-11-17 01:20] VITALS: BP 117/61; PULSE 88; RESP 16; TEMP 36.3; O2SAT 97
[2018-11-17] MEDS: Acetaminophen 500 MG Tablet 1000 MG PO ×2 (03:35→12:11)
--- NOTE | 2018-11-17 07:42 | PCM.PN.OB ---
Subjective: No issues overnight. Denies lightheadedness, dizziness, nausea or heart racing. No prior episodes of syncope. Denies heavy lochia. Pain controlled. Reports she is tired. Objective: AVSS - Physical Exam General: Alert, Oriented x3, Cooperative, No apparent distress HEENT: Atraumatic, Normocephalic Lungs: Clear to auscultation, Normal air movement Cardiovascular: Regular rate, Regular Rhythm, Normal S1, Normal S2 Abdomen: Soft, Non Tender, Non-Distended, - - fundus firm and nontender, lochia scant Extremities: No edema, No Calf Tenderness Neurological: Neuro grossly intact Psych/Mental Status: Normal Affect, Appropriate, Alert and oriented to time, place, person, mood and affect Vital Signs Temp Pulse Resp BP Pulse Ox 97.3 F L 88 16 117/61 97 11/17/18 01:20 11/17/18 01:20 11/17/18 01:20 11/17/18 01:20 11/17/18 01:20 Oxygen Delivery Method Room Air Weight: 70.08 kg Body Mass Index (BMI) 22.8 Orthostatic Vital Signs Start: 11/16/18 04:27 Freq: q24h Status: Active Protocol: Activity Type Activity Date Activity User E-Sign Co-Sign Detail Recorded Client Recorded Date Recorded By Document 11/16/18 10:18 KW [id number] 11/16/18 10:18 KW 11/16/18 10:18 Orthostatic Vitals Standing -Blood Pressure (90/60-120/80) 110/72 -Extremity Use Right Arm -Pulse Rate (60-100) 138 H Intake and Output for Last 24 Hours 11/15/18 11/16/18 11/17/18 23:59 23:59 23:59 Intake Total 4720.73 / 4720.73 2969.06 / 2969.06 Output Total 2250 / 2250 1750 / 1750 Balance 2470.73 / 2470.73 1219.06 / 1219.06 Medical Necessity - Tobacco Use Smoking Status: Never smoker Assessment/Plan 23yo PPD#2 s/p doing well. -Syncopal episode following delivery likely due to peripartum fluid shift. Encouraged adequate protein intake and hydration. -RPR nr, HBsAg neg, HIV nr, Rub immune, A pos - -Routine care -d/c home today
--- NOTE | 2018-11-17 07:47 | PCM.DC.SUM ---
Discharge Date and Diagnosis Date of Admission: 11/15/18 Date of Discharge: 11/17/18 Hospital Course and Treatment Consultations 11/15/18 07:28 Consult: Anesthesia Routine Comment: Reason For Exam: Labor Consults: Hospitalist Reason: Syncope Operations: None Procedures: 2-D Echocardiogram Summary of Care Provided: The patient is a 23 year old F admitted at at 41wmn for induction of labor. She had a vacuum assisted vaginal delivery. Her course was complicated by a syncopal episode shortly after delivery. She was found to be orthostatic. Hospitalist consultation was obtained and an echocardiogram was normal. Her course was otherwise unremarkable with no further recurrence and she was discharged to home on day #2. - Physical Exam Vital Signs Temp Pulse Resp BP Pulse Ox 97.3 F L 88 16 117/61 97 11/17/18 01:20 11/17/18 01:20 11/17/18 01:20 11/17/18 01:20 11/17/18 01:20 Oxygen Delivery Method Room Air Weight: 70.08 kg Body Mass Index (BMI) 22.8 Orthostatic Vital Signs Start: 11/16/18 04:27 Freq: q24h Status: Active Protocol: Activity Type Activity Date Activity User E-Sign Co-Sign Detail Recorded Client Recorded Date Recorded By Document 11/16/18 10:18 [email or web address] [id number] 11/16/18 10:18 KW 11/16/18 10:18 Orthostatic Vitals Standing -Blood Pressure (90/60-120/80) 110/72 -Extremity Use Right Arm -Pulse Rate (60-100) 138 H Intake and Output for Last 24 Hours 11/15/18 11/16/18 11/17/18 23:59 23:59 23:59 Intake Total 4720.73 / 4720.73 2969.06 / 2969.06 Output Total 2250 / 2250 1750 / 1750 Balance 2470.73 / 2470.73 1219.06 / 1219.06 Discharge Diet: No Restrictions Discharge Activity: May Shower, May Take a Tub Bath May resume sexual activity in: 4-6 weeks Additional Activity Instructions:: Nothing in the vagina for 4-6 weeks. You may return to work/school in 6 weeks. Call your doctor if you observe: Fever of 101 or Higher, Inability to urinate, Inability to have a bowel movement, Using more than one pad per hour Home Medications: Medications to take at Discharge Ferrous Gluconate 324 mg PO DAILY 11/15/18 Tablet 1 tab PO DAILY 11/15/18 Primary Care Physician: Care Physician,No Primary [Primary Care Provider] - Please Follow Up With: Mary Medina MD - [phone] Medical Necessity - Tobacco Use Smoking Status: Never smoker Meaningful Use Info Meaningful Use Diagnoses (Choose all that apply): None applicable
[2018-11-17 08:35] VITALS: BP 115/63; PULSE 67; RESP 16; TEMP 36.3; O2SAT 97
[2018-11-17 13:59] VITALS: BP 114/63; PULSE 73; RESP 16; TEMP 36.3; O2SAT 97
== END 2018-11-17 17:10 | disposition home or self-care (01) | DRG 807 ==
PROVIDERS: Family Medicine; Admitting Provider Obstetrics & Gynecology; Referring Provider Obstetrics & Gynecology; Visit Provider Obstetrics & Gynecology
DX: O75.81 Maternal exhaustion complicating labor and delivery (principal); Z37.0 Single live birth; O48.0 Post-term pregnancy; Z3A.41 41 weeks gestation of pregnancy; O99.824 Streptococcus B carrier state complicating childbirth; O69.81X0 Labor and delivery complicated by cord around neck, without compression, not applicable or unspecified; O70.1 Second degree perineal laceration during delivery; R55 Syncope and collapse; E83.42 Hypomagnesemia; O99.284 Endocrine, nutritional and metabolic diseases complicating childbirth
CPT/HCPCS: 59025; 59050; 80048; 82962; 83735; 84484; 85025; 86850; 86900; 86901; 93005; 93306; 99218; J7030; J7120; A4216; G0378; J0610; J2405

== ENCOUNTER → 2020-01-17 | Outpatient (CLI) | payer BC, SELFPAY ==
[2020-01-21 11:01] LABS: HPV Reflexed? NOT INDICATED
== END | disposition home or self-care (01) ==
LOC: LABSPEC 11:56
PROVIDERS: Visit Provider Obstetrics & Gynecology
DX: Z12.4 Encounter for screening for malignant neoplasm of cervix (principal)
CPT/HCPCS: 88175; G0145

== ENCOUNTER → 2020-07-14 | Outpatient (CLI) | payer SELFPAY ==
[2020-07-14 17:02] LABS: Bacteria 0 SEEN /hpf (None Seen); Mucous, Urine 0 SEEN /hpf (<or=2+)
[2020-07-14 17:39] LABS: Color, Urine Yellow (Yellow); Glucose, Dipstick Normal (Normal); Ketone-Dipstick Negative (Negative); Leukocyte Esterase-Dipstick 25 /ul (Negative); Nitrite-Dipstick Negative (Negative); Occult Blood-Urine 150 /ul (Negative); Protein-Dipstick 15 mg/dl (Negative); Urine Bilirubin Dipstick Negative (Negative); Urine Urobilinogen Normal (Normal)
[2020-07-14 17:41] LABS: Urine Clarity Sl Cldy (Clear)
[2020-07-14 17:45] LABS: Red Blood Cells-Urine 5-10 SEEN /hpf (0-5); Squamous Epithelial Cells - UA 0-5 SEEN /hpf (5-10); White Blood Cells 0-5 SEEN /hpf (0-5)
[2020-07-17 03:07] LABS: Chlamydia By Nucleic Acid AMP Negative (Negative)
[2020-07-17 12:42] LABS: Gonococcus By Nucleic Acid AMP Negative (Negative)
== END | disposition home or self-care (01) ==
LOC: LABSPEC 16:58
PROVIDERS: Visit Provider Obstetrics & Gynecology
DX: R30.0 Dysuria (principal); Z11.3 Encounter for screening for infections with a predominantly sexual mode of transmission
CPT/HCPCS: 81001; 87086; 87088; 87186; 87491; 87591

== ENCOUNTER → 2020-08-07 10:57 | Outpatient (CLI) | payer BC, SELFPAY ==
[2020-08-07 13:03] LABS: Absolute Lymphocyte Count 1.22 X10^3/uL (0.83-4.51); Absolute Neutrophil Count 5.6 X10^3/uL (2.0-7.7); Basophil# 0.02 X10^3/uL; Basophil% 0.3 % (0-1); Color, Urine Yellow (Yellow); Eosinophil# 0.06 X10^3/uL; Eosinophils% 0.8 % (0-5); Glucose, Dipstick Normal (Normal); Hematocrit 40.9 % (37-47); Ketone-Dipstick Negative (Negative); Leukocyte Esterase-Dipstick Negative /ul (Negative); Lymphocyte # 1.22 X10^3/ul (0.83-4.51); Lymphocyte % 16.9 % (19-41); Mean Corp Hgb Conc 34.2 g/dL (32-36); Mean Corpuscular Hgb 31.5 pg (27.0-32.0); Mean Corpuscular Volume 92.1 fL (81-99); Mean Platelet Vol. 10.9 fl (6.2-12.0); Monocyte# 0.37 X10^3/uL; Monocyte% 5.1 % (0-10); NRBC Flagged by Analyzer 0 % (0-5); Neutrophil # 5.55 X10^3/uL (2.7-7.7); Neutrophil % 76.6 % (47-70); Nitrite-Dipstick Negative (Negative); Occult Blood-Urine Negative /ul (Negative); Platelet Count 193 K/mm3 (150-450); Protein-Dipstick Negative (Negative); RBC Distribution Width CV 12.3 % (11.6-14.6); RBC Distribution Width SD 42.2 fl (35.1-43.9); Red Blood Count 4.44 M/mm3 (4.2-5.4); Specific Gravity, Urine 1.015 (1.002-1.030); Urine Bilirubin Dipstick Negative (Negative); Urine Clarity Clear (Clear); Urine Urobilinogen Normal (Normal); White Blood Count 7.2 K/mm3 (4.4-11.0)
[2020-08-07 13:27] LABS: Thyroid Stim Hormone (TSH) 0.38 uIU/mL (0.358-3.74)
[2020-08-07 13:55] LABS: HIV - WCH Non-Reactive (Nonreactive); Hepatitis B Surface Antigen Non-Reactive (Nonreactive); Hepatitis C Antibody Non-Reactive (Nonreactive); Rubella IgG Reactive (Nonreactive); Syphilis Antibodies Non-reactive
== END ==
PROVIDERS: Visit Provider Obstetrics & Gynecology
DX: Z34.81 Encounter for supervision of other normal pregnancy, first trimester (principal)
CPT/HCPCS: 36415; 81002; 84443; 85025; 86703; 86762; 86780; 86803; 87340

== ENCOUNTER → 2020-12-04 | Outpatient (CLI) | payer BC, SELFPAY ==
[2020-12-04 11:51] LABS: Hematocrit 37.9 % (37-47); Hemoglobin 12.9 g/dL (12.0-15.0); Mean Corpuscular Hgb 32.8 pg (27.0-32.0); Mean Corpuscular Volume 96.4 fL (81-99); Mean Platelet Vol. 10.7 fl (6.2-12.0); Platelet Count 167 K/mm3 (150-450); RBC Distribution Width CV 12.8 % (11.6-14.6); RBC Distribution Width SD 45.4 fl (35.1-43.9); Red Blood Count 3.93 M/mm3 (4.2-5.4); White Blood Count 8.1 K/mm3 (4.4-11.0)
[2020-12-04 11:54] LABS: Glucose Challenge Gest 1H 50g 72 mg/dL (70-140)
== END | disposition home or self-care (01) ==
LOC: LABSPEC 10:10
PROVIDERS: Visit Provider Obstetrics & Gynecology
DX: Z34.82 Encounter for supervision of other normal pregnancy, second trimester (principal)
CPT/HCPCS: 36415; 82950; 85027

== ENCOUNTER → 2021-02-05 | Outpatient (CLI) | payer BC, SELFPAY | END | disposition home or self-care (01) | LOC: LABSPEC 11:39 | PROVIDERS: Visit Provider Obstetrics & Gynecology | DX: Z36.85 Encounter for antenatal screening for Streptococcus B (principal) | CPT/HCPCS: 87081 ==

== ENCOUNTER 2021-03-13 03:28 | Inpatient (IN) | payer OTHER, SELFPAY ==
[2021-03-13] VITALS (55 sets, daily range): BP systolic 87–129; BP diastolic 44–76; PULSE 55–88; RESP 16; TEMP 36–36.8; O2SAT 88–100; BMI 23.6
[2021-03-13] MEDS: Lactated Ringers 500 ML 999 ML IV ×2 (03:40→04:57)
[2021-03-13] MEDS: Lactated Ringers 1,000 ML 200 ML IV ×2 (03:40→09:45)
[2021-03-13] MEDS: Ondansetron 4 MG/2 ML Vial IV (04:04)
[2021-03-13 04:10] LABS: Absolute Neutrophil Count 11.4 X10^3/uL (2.0-7.7); Basophil# 0.01 X10^3/uL; Basophil% 0.1 % (0-1); Eosinophil# 0.05 X10^3/uL; Eosinophils% 0.4 % (0-5); Hematocrit 35.7 % (37-47); Hemoglobin 11.6 g/dL (12.0-15.0); Lymphocyte % 6.9 % (19-41); Mean Corp Hgb Conc 32.5 g/dL (32-36); Mean Corpuscular Hgb 30.1 pg (27.0-32.0); Mean Corpuscular Volume 92.5 fL (81-99); Mean Platelet Vol. 11.3 fl (6.2-12.0); Monocyte# 0.71 X10^3/uL; Monocyte% 5.4 % (0-10); NRBC Flagged by Analyzer 0 % (0-5); Neutrophil # 11.36 X10^3/uL (2.7-7.7); Neutrophil % 86.9 % (47-70); Platelet Count 155 K/mm3 (150-450); RBC Distribution Width CV 12.9 % (11.6-14.6); RBC Distribution Width SD 43.5 fl (35.1-43.9); Red Blood Count 3.86 M/mm3 (4.2-5.4); White Blood Count 13.1 K/mm3 (4.4-11.0)
[2021-03-13] MEDS: fentaNYL-bupivacaine (epidural) 100 ML BAG EPIDURAL ×2 (04:50→09:22)
--- NOTE | 2021-03-13 09:21 | HP.PCM.OB_ITS ---
History and Physical Date of Admission: 03/13/21 Chief complaint: Contraction History of present illness: 26-year-old G2, P1 at 41 weeks and 1 day with SHAAN: 03/05/2021 by LMP arrives with contractions. Denies headache, visual changes, chest pain, shortness of breath, nausea vomiting, Patient states good movement right upper edith drant pain. States good movement Obstetrical history: G1: 41-week vacuum-assisted vaginal delivery female 11/15/2018 G2: Current Past medical history: none Medications: None Past surgical history: None Allergies: Latex Social history: Denies history of smoking, alcohol use, drug use Family history: Denies history DVT or PE Review of systems: Besides above pertinent positives a full review of systems performed found to be negative Physical exam: Vitals: Blood pressure 116/58 pulse 65 temp 97.9 Fahrenheit SPO2 97% on room air General: Normal-appearing no acute distress Cardiac/respiratory: No use of accessory muscles, nonlabored breathing HEENT: Normocephalic/atraumatic no cervical of adenopathy Abdomen: Soft, nontender, gravid Extremities: No peripheral edema normal peripheral pulses Psych: Normal affect normal demeanor nonpressured speech Labs: White blood cell count 13.1 hemoglobin 11.6 hematocrit 35.7% platelets 155 Blood type:a positive antibody negative Assessment plan: 26-year-old G2, P1 at 41 weeks and 1 day in labor Admit labor and delivery CEFM GBS negative Routine orders Anesthesia see
--- NOTE | 2021-03-13 09:26 | PN.OBGYN_ITS ---
Subjective Subjective No complaints comfortable with epidural Objective Data Objective Data Vital Signs: Vital Signs Temp Pulse BP Pulse Ox 97.9 F 65 116/58 L 97 03/13/21 09:07 03/13/21 09:07 03/13/21 09:07 03/13/21 09:07 Weight: 159 lb 9.6 oz Body Mass Index (BMI) 23.6 Intake & Output: Intake and Output for Last 24 Hours 03/11/21 03/12/21 03/13/21 23:59 23:59 23:59 Intake Total 1000 / 1000 Output Total 800 / 800 Balance 200 / 200 Lab / Micro Data Result Diagrams: 03/13/21 03:40 Labs: Laboratory Results - last 24 hr 03/13/21 03:40: WBC 13.1 H, RBC 3.86 L, Hgb 11.6 L, Hct 35.7 L, MCV 92.5, MCH 30.1, MCHC 32.5, RDW Std Deviation 43.5, RDW Coeff of Brooks 12.9, Plt Count 155, MPV 11.3, Immature Gran % (Auto) 0.300, Neut % (Auto) 86.9 H, Lymph % (Auto) 6.9 L, [place] % (Auto) 5.4, Eos % (Auto) 0.4, Baso % (Auto) 0.1, Absolute Neuts (auto) 11.4 H, Absolute Lymphs (auto) 0.90, Nucleated RBC % 0 03/13/21 03:40: Blood Type A POSITIVE, Antibody Screen NEGATIVE Micro: Microbiology 03/13/21 03:35 Nasal Secretion SARS-CoV-2 Antigen (Rapid) - Final Physical Exam Const alert, oriented x3, no apparent distress, average body habitus, healthy appearing and well nourished HEENT normocephalic and moist oral mucous membranes Head and Scalp: atraumatic Face and Sinus: normal facial exam Neck full ROM Resp normal respiratory effort, no retractions and no use of accessory muscles Narrative: Cervical exam: /-2. AROM clear fluid Extremity normal to inspection, full ROM and no clubbing, cyanosis or edema Psych mental status grossly normal, affect normal, speech normal and activity/motor behavior normal Assessment & Plan (1) : PLAN: Patient seen and examined. AROM clear fluid. Start Pitocin.
[2021-03-13] MEDS: Oxytocin 30 units/NS 500 ml 30 UNITS/500 ML IV.SOLN IV (09:53)
[2021-03-13] MEDS: Oxytocin 30 units/NS 500 ml 30 UNITS/500 ML IV.SOLN 334 UNITS IV (11:35)
--- NOTE | 2021-03-13 11:46 | EX.PCM.OBRPT ---
Vaginal Delivery Findings Description of Procedure: Normal spontaneous vaginal delivery of a viable male , vertex PATT. Head and shoulders delivered with ease. Cord cut and clamped. Baby handed off to patient. Placenta delivered via cord traction and fundal massage. First-degree midline perineal laceration noted and repaired in typical fashion. EBL 250 cc Apgars 8/9
[2021-03-13] MEDS: 0.9% Saline Lock 10 ML Syringe IV (14:05)
[2021-03-13] MEDS: Ibuprofen 600 MG Tablet PO (21:21)
[2021-03-14] VITALS (10 sets, daily range): BP systolic 109–119; BP diastolic 55–68; PULSE 59–96; RESP 16; TEMP 36.1–36.3; O2SAT 94–98
--- NOTE | 2021-03-14 11:05 | PCM.DC ---
Discharge Instructions Diet Discharge Diet: No restrictions Activity Discharge Activity: Return to Normal Activity, May Drive and May Shower May resume sexual activity in: 4-6 weeks Weight Bearing Status: Weight bearing as tolerated Dressing / Incision Call your doctor if your incision/area has: Continuous Slow Oozing and Foul Smelling Discharge Call your doctor if you observe: Fever of 101 or Higher, Shortness of breath and Chest pain Follow Up Care Please Follow Up With: Gavin Green MD When: 2-week telehealth, 4 to 6 weeks Test Results: Test results from this visit will be discussed in further detail at your follow-up appointment, if applicable. Discharge Plan Admission Admit Date/Time: 03/13/21 03:28 Attending Provider: Gavin Green Primary Care Provider: Care PhysicianMaryann Primary Discharge Orders/Prescriptions Prescriptions: No Action Tablet 1 tab PO DAILY RF: 0 Disposition Discharge Orders: Discharge Patient (Routine); Ordered 03/14/21 Ordered By: Dr. Gavin Green
--- NOTE | 2021-03-14 11:05 | PCM.PN.OB ---
Subjective Subjective No overnight complaints Objective Data Objective Data Vital Signs: Vital Signs Temp Pulse Resp BP Pulse Ox 97.3 F L 67 16 109/55 L 97 03/14/21 08:49 03/14/21 08:52 03/14/21 08:49 03/14/21 08:52 03/14/21 08:51 Oxygen Delivery Method Room Air Weight: 159 lb 9.6 oz Body Mass Index (BMI) 23.6 Intake & Output: Intake and Output for Last 24 Hours 03/12/21 03/13/21 03/14/21 23:59 23:59 23:59 Intake Total 2939.07 / 2939.07 Output Total 2400 / 2400 Balance 539.07 / 539.07 Lab / Micro Data Result Diagrams: 03/13/21 03:40 Micro: Microbiology 03/13/21 03:35 Nasal Secretion SARS-CoV-2 Antigen (Rapid) - Final Physical Exam Const alert, oriented x3, no apparent distress, average body habitus, healthy appearing and well nourished HEENT normocephalic and moist oral mucous membranes Head and Scalp: atraumatic Face and Sinus: normal facial exam Eyes PERRL Neck full ROM Resp normal respiratory effort, no retractions and no use of accessory muscles GI GI Narrative: Soft, nontender, uterus firm and below umbilicus Extremity normal to inspection, full ROM and no clubbing, cyanosis or edema Psych mental status grossly normal, affect normal, speech normal and activity/motor behavior normal Assessment & Plan (1) Vaginal delivery: PLAN: day 1. Breast-feeding. Pain well controlled. 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
--- NOTE | 2021-03-18 18:37 | NURSING ---
attempted follow up phone call. No answer. Left a voicemail
== END 2021-03-14 15:40 | disposition home or self-care (01) | DRG 807 ==
LOC: WPOUT 03:30 → WP 03:30
PROVIDERS: Admitting Provider Obstetrics & Gynecology; Visit Provider Obstetrics & Gynecology
DX: O48.0 Post-term pregnancy (principal); Z37.0 Single live birth; O70.0 First degree perineal laceration during delivery; Z20.822 Contact with and (suspected) exposure to COVID-19; Z91.040 Latex allergy status; Z3A.41 41 weeks gestation of pregnancy
CPT/HCPCS: 59025; 59050; 85025; 86850; 86900; 86901; 87426; 99218; J7120; A4216; G0378; J2405

== ENCOUNTER → 2023-04-17 | Outpatient (CLI) | payer OTHER, SELFPAY ==
[2023-04-17 15:33] LABS: Absolute Lymphocyte Count 1.58 X10^3/uL (0.83-4.51); Absolute Neutrophil Count 5.2 X10^3/uL (2.0-7.7); Basophil# 0.02 X10^3/uL; Basophil% 0.3 % (0-1); Eosinophil# 0.04 X10^3/uL; Eosinophils% 0.6 % (0-5); Hematocrit 39.1 % (37-47); Hemoglobin 13.4 g/dL (12.0-15.0); Lymphocyte # 1.58 X10^3/ul (0.83-4.51); Mean Corp Hgb Conc 34.3 g/dL (32-36); Mean Corpuscular Hgb 30.9 pg (27.0-32.0); Mean Corpuscular Volume 90.1 fL (81-99); Mean Platelet Vol. 10.9 fl (6.2-12.0); Monocyte# 0.32 X10^3/uL; Monocyte% 4.5 % (0-10); NRBC Flagged by Analyzer 0 % (0-5); Neutrophil # 5.22 X10^3/uL (2.7-7.7); Neutrophil % 72.5 % (47-70); Platelet Count 185 K/mm3 (150-450); RBC Distribution Width SD 39.6 fl (35.1-43.9); Red Blood Count 4.34 M/mm3 (4.2-5.4); White Blood Count 7.2 K/mm3 (4.4-11.0)
[2023-04-17 17:06] LABS: HIV - WCH Non-Reactive (Nonreactive); Hepatitis B Surface Antigen Non-Reactive (Nonreactive); Hepatitis C Antibody Non-Reactive (Nonreactive); Rubella IgG Reactive (Nonreactive); Syphilis Antibodies Non-reactive
[2023-04-20 04:07] LABS: Chlamydia By Nucleic Acid AMP Negative (Negative); Gonococcus By Nucleic Acid AMP Negative (Negative)
[2023-04-21 17:07] LABS: HPV APTIMA, High Risk Negative (Negative)
== END | disposition home or self-care (01) ==
PROVIDERS: Registered Nurse; Referring Provider Obstetrics & Gynecology; Visit Provider Obstetrics & Gynecology
DX: Z34.90 Encounter for supervision of normal pregnancy, unspecified, unspecified trimester (principal)
CPT/HCPCS: 36415; 85025; 86703; 86762; 86780; 86803; 86850; 86900; 86901; 87086; 87340; 87491; 87591; 87624; 88175; G0145

== ENCOUNTER → 2023-08-02 | Outpatient (CLI) | payer OTHER, SELFPAY ==
[2023-08-02 09:28] LABS: Absolute Lymphocyte Count 1.15 X10^3/uL (0.83-4.51); Absolute Neutrophil Count 6.2 X10^3/uL (2.0-7.7); Basophil# 0.02 X10^3/uL; Basophil% 0.3 % (0-1); Eosinophil# 0.05 X10^3/uL; Eosinophils% 0.6 % (0-5); Hematocrit 37.6 % (37-47); Hemoglobin 12.8 g/dL (12.0-15.0); Lymphocyte # 1.15 X10^3/ul (0.83-4.51); Lymphocyte % 14.7 % (19-41); Mean Corpuscular Hgb 32.2 pg (27.0-32.0); Mean Corpuscular Volume 94.7 fL (81-99); Mean Platelet Vol. 10.4 fl (6.2-12.0); Monocyte# 0.39 X10^3/uL; NRBC Flagged by Analyzer 0 % (0-5); Neutrophil # 6.21 X10^3/uL (2.7-7.7); Neutrophil % 79.1 % (47-70); Platelet Count 168 K/mm3 (150-450); RBC Distribution Width CV 13.3 % (11.6-14.6); RBC Distribution Width SD 46.3 fl (35.1-43.9); Red Blood Count 3.97 M/mm3 (4.2-5.4); White Blood Count 7.8 K/mm3 (4.4-11.0)
[2023-08-02 09:58] LABS: Glucose Challenge Gest 1H 50g 101 mg/dL (70-140)
[2023-08-02 17:34] LABS: HIV - WCH Non-Reactive (Nonreactive); Syphilis Antibodies Non-reactive
== END | disposition home or self-care (01) ==
PROVIDERS: Referring Provider Obstetrics & Gynecology; Visit Provider Obstetrics & Gynecology
DX: Z13.1 Encounter for screening for diabetes mellitus (principal); Q67.6 Pectus excavatum
CPT/HCPCS: 36415; 82950; 85025; 86703; 86780

== ENCOUNTER → 2023-10-13 | Outpatient (CLI) | payer OTHER, SELFPAY | END | disposition home or self-care (01) | LOC: LABSPEC 16:20 | PROVIDERS: Referring Provider Obstetrics & Gynecology; Visit Provider Obstetrics & Gynecology | DX: Z34.82 Encounter for supervision of other normal pregnancy, second trimester (principal) | CPT/HCPCS: 87081 ==

== ENCOUNTER 2023-11-13 12:14 | Inpatient (IN) | payer OTHER, SELFPAY ==
[2023-11-13] VITALS (17 sets, daily range): BP systolic 107–126; BP diastolic 56–74; PULSE 59–97; RESP 15–20; TEMP 35.8–37.1; O2SAT 87–100; BMI 22.8
[2023-11-13 11:43] LABS: ROM Internal Control Test YES-OK TO RESULT pt. (Internal QC)
[2023-11-13 11:44] LABS: ROM Patient Test POSITIVE (Negative); Record Kit Lot#, ROM+ K1866
[2023-11-13 12:25] LABS: Absolute Neutrophil Count 6.3 X10^3/uL (2.0-7.7); Basophil# 0.02 X10^3/uL; Basophil% 0.2 % (0-1); Eosinophil# 0.11 X10^3/uL; Eosinophils% 1.3 % (0-5); Hematocrit 38.4 % (37-47); Hemoglobin 13.3 g/dL (12.0-15.0); Lymphocyte % 17.6 % (19-41); Mean Corp Hgb Conc 34.6 g/dL (32-36); Mean Corpuscular Hgb 32.8 pg (27.0-32.0); Mean Corpuscular Volume 94.8 fL (81-99); Mean Platelet Vol. 11.5 fl (6.2-12.0); Monocyte# 0.51 X10^3/uL; NRBC Flagged by Analyzer 0 % (0-5); Neutrophil # 6.34 X10^3/uL (2.7-7.7); Neutrophil % 74.5 % (47-70); Platelet Count 141 K/mm3 (150-450); RBC Distribution Width SD 45.2 fl (35.1-43.9); Red Blood Count 4.05 M/mm3 (4.2-5.4); White Blood Count 8.5 K/mm3 (4.4-11.0)
[2023-11-13 13:08] LABS: Syphilis Antibodies Non-reactive
[2023-11-13] MEDS: Oxytocin 15 Units/NS 250ml 15 UNITS/250 ML IV.SOLN 334 UNITS IV (15:31)
[2023-11-13] MEDS: Oxytocin 15 Units/NS 250ml 15 UNITS/250 ML IV.SOLN 83 UNITS IV (17:30)
--- NOTE | 2023-11-13 17:37 | HP.PCM.OB_ITS ---
HPI - General General Date of Admission: 11/13/23 HPI Narrative NATTY CAMP, is a 28 F who presents IAL 5 cm regular ctx and srom clear fluid Maternal Data Information SHAAN Calculator Estimated Delivery Date Method Current WG Current Estimate 11/04/23 LMP (Certain) 41w 2d PFSH PFS Medical History (Updated 11/13/23 @ 17:[address] Rosalinda Frank MD) Vaginal delivery Medical History no medical history Home Medications ?Medication ?Instructions ?Recorded ?Last Taken ?Type PNV 153-FA 400 mcg-om3 35 mg-dha 1 tab PO DAILY 03/31/23 11/13/23 08:00 History 25 mg-epa 5 mg-fish oil chew tablet 1 TAB Allergy/AdvReac Type Severity Reaction Status Date / Time latex Allergy Unknown Rash Verified 11/13/23 11:34 Food Allergies: Uncoded AdvReac Severe THROAT Verified 11/10/23 10:04 SWELLS Family History no significant family his Surgical History no surgical history Social History adopted: No household members: spouse and children number of children: 2 current occupational status: employed current occupation: [employer] current occupational exposures/hazards: No pets and animals: Yes (Avoid litterbox) pets and animals: cat(s) history of recent travel: No sexually active: Yes Smoking Status: Never smoker alcohol intake: current alcohol intake frequency: a few times a week details: not while substance use type: does not use well-balanced diet: daily or most days caffeine: Yes Type: tea Number of servings: 1 eating out: rarely or never during the past year weight has: remained stable what type of physical activity do you participate in: none park/congregation: [employer] seatbelt use: always do you feel safe at home: Yes additional social history: [employer] History 3 Elective abortions Hx Para 2 Spontaneous abortions Hx # Term Pregnancies Ectopic pregnancies Hx # Pregnancies Multiple births # of living children 2 Past Pregnancies Del. Date Name GA/Weeks Outcome Route Bth Weight Gen Labor Lgth Anesthesia Del Locatn Provider FOB 11/15/18 [place] 41 live - full term vacuum 8#9oz Female epid ural [facility] [place] 03/13/21 [place] 41 live - full term 8#13oz Male epi dural [facility] Delivery Date: 11/15/18 Last Updated by: Josette Chong IOL post dates Visit Details Expected Delivery Route/Plan Labor Preferences- CB/BF classes: no labor support person: Arnoldo labor intervention preferences: [] pain management options preferred: epidural cut cord/dad catch: yes : yes PP control planned: discussed discussed possible routes of delivery and associated risks: [] special requests: [] Plans Covid status: [] Flu vaccine: [] Tdap vaccine: given Rhogam: NA LARC form signed: yes movement and labor precautions reviewed. Problem list reviewed and updated with the most current plan of care details and appropriate orders placed. Relevant counseling for the gestational age provided. Continue routine care and follow up unless otherwise noted in visit notes/problem list details OB Flowsheet Initial Weight: Not Recorded Date -?-?-?-?-?-?-?-?-?-?-?-?- EGA Weight BP Urine Prot -?-?-?-?-?-?-?-?-?-?-?-?- Glucose FHR FuHt Pres Dilation -?-?-?-?-?-?--?-?-?-?-?-?- Effaced St Visit Note 04/17/23 -?-?-?-?-?-?-?-?-?-?-?-?- 11w 2d 124 lb 112/80 -?-?-?-?-?-?-?-?-?-?-?-?- 160 -?-?-?-?-?-?-?-?-?-?-?-?- SM- SM- CRL cons with LMP 05/17/23 -?-?-?-?-?-?-?-?-?-?-?-?- 15w 4d 127 lb 125/83 Negative -?-?-?-?-?-?-?-?-?-?-?-?- Negative 156 -?-?-?-?-?-?-?-?-?-?-?-?- MH-No VB. No flu tters yet. Reviewed PN labs. Declines AFP. US ordered 06/12/23 -?-?-?-?-?-?-?-?-?-?-?-?- 19w 2d 133 lb 2 oz 135/77 135/77 Negative -?-?-?-?-?-?-?-?-?-?-?-?- Negative 151 -?-?-?-?--?-?-?-?-?-?-?-?- Sharad- anatomy scan is scheduled 06/27/23. no complaints today. 07/13/23 -?-?-?-?-?-?-?-?-?-?-?-?- 23w 5d 138 lb 129/79 -?-?-?-?-?-?-?-?-?-?-?-?- 150 -?-?-?-?-?-?-?-?-?-?-?-?- SM- no vb lof go od fm nor egualr ctx 08/07/23 -?-?-?-?-?-?-?-?-?-?-?-?- 27w 2d 142 lb 2 oz 124/82 Nega tive -?-?-?-?-?-?-?-?-?-?-?-?- Negative 138 27 -?-?-?-?-?-?-?-?-?-?-?-?- MH-NO VB, LOF. G ood FM. Not done repeat US for eval of kidney as US MFM not covered. Will discuss with JOSE and call patient. Larc. Nl 28 wk labs 08/22/23 -?-?-?-?-?-?-?-?-?-?-?-?- 29w 3d 143 lb 129/73 Negative -?-?-?-?-?-?-?-?-?-?-?-?- Negative 150 28 -?-?-?-?-?-?-?-?-?-?-?-?- KW- no vb/crampi ng. good fm. tdap today. no concerns today. 09/22/23 -?-?-?-?-?-?-?-?-?-?-?-?- 33w 6d 147 lb 127/76 -?-?-?-?-?-?-?-?-?-?-?-?- 145 33 -?-?-?-?-?-?-?-?-?-?-?-?- LC- no vb/ctx/lo f. good fm. no concerns. 10/06/23 -?-?-?-?-?-?-?-?-?-?-?-?- 35w 6d 148 lb 6 oz 113/71 Nega tive -?-?-?-?-?-?-?-?-?-?-?-?- Negative 144 35 -?-?-?-?-?-?-?-?-?-?-?-?- JV- no lof, vagi nal bleeding, or dec fm. plan 38 weeks fluid check at 38 weeks . 10/13/23 -?-?-?-?-?-?-?-?-?-?-?-?- 36w 6d 152 lb 107/72 Negative -?-?-?-?-?-?-?-?-?-?-?-?- Negative 125 37 Cephalic 1 -?-?-?-?-?-?-?-?-?-?-?-?- Sm- no vb lof go od fm no regular ctx gbs collected 10/20/23 -?-?-?-?-?-?-?-?-?-?-?-?- 37w 6d 149 lb 115/79 Negative -?-?-?-?-?-?-?-?-?-?-?-?- Negative 140 38 Cephalic -?-?-?-?-?-?-?-?-?-?-?-?- SM- no vb lof go od fm no regular ctx 10/27/23 -?-?-?-?-?-?-?-?-?-?-?-?- 38w 6d 153 lb 122/80 Negative -?-?-?-?-?-?-?-?-?-?-?-?- Negative 123 38 Cephalic -?-?-?-?-?-?-?-?-?-?-?-?- JV- [place] is 7.6 t jarad. repeat monday or monday. declines cervical exam today. 10/30/23 -?-?-?-?-?-?-?-?-?-?-?-?- 39w 2d 152 lb 2 oz 137/79 Nega tive -?-?-?-?-?-?-?-?-?-?-?-?- Negative 135 Cephalic -?-?-?-?-?-?-?-?-?-?-?-?- JV- [place] still at 7. ok to rto on monday for membrane sweep. 11/03/23 -?-?-?-?-?-?-?-?-?-?-?-?- 39w 6d 153 lb 116/73 Negative -?-?-?-?-?-?-?-?-?-?-?-?- Negative 130 39 Cephalic 3 .5 -?-?-?-?-?-?-?-?-?-?-?-?- 70 -2 SM- no vb lof good fm no regular ctx membranes swept 11/10/23 -?-?-?-?-?-?-?-?-?-?-?-?- 40w 6d 152 lb 8 oz 112/74 Nega tive -?-?-?-?-?-?-?-?-?-?-?-?- Negative 130 39 Cephalic 4 -?-?-?-?-?-?-?-?-?-?-?-?- 90 -1 JV- NST re active today. pt declines IOL. plan to bring back twice next week and deliver at 42 weeks. JV- NST reactive today. pt d eclines IOL. plan to bring back twice next week and deliver at 42 weeks. [place] today is 10. rto in on monday for rpt nst and discuss IOL at that time. NST FHR Rate Baby A Baseline: 140 Variability:: Moderate Accelerations:: 15 x 15 Decelerations:: Late (isolated x 2, overall cat I) NST Reactive:: Yes FHR Category:: Category I Uterine Activity:: q3-5 ROS Constitutional Constitutional: Reports systems reviewed and no addt'l complaints, except as documented ENT HEENT: Reports systems reviewed and no addt'l complaints, except as documented Cardiovascular Cardiovascular: Reports systems reviewed and no addt'l complaints, except as documented Respiratory/Chest Respiratory/Chest: Reports systems reviewed and no addt'l complaints, except as documented Gastrointestinal Gastrointestinal: Reports systems reviewed and no addt'l complaints, except as documented and nausea; Denies abdominal pain Genitourinary Genitourinary: Reports systems reviewed and no addt'l complaints, except as documented, contractions Details: present and frequency (regular ) and movement Details: present Musculoskeletal Musculoskeletal: Reports systems reviewed and no addt'l complaints, except as documented Integumentary Integumentary: Reports as per HPI Neurologic Neurologic: Reports systems reviewed and no addt'l complaints, except as documented Endocrine Endocrinology: Reports systems reviewed and no addt'l complaints, except as documented Vital Signs Vital Signs Vital Signs: 11/13/23 11:16 11/13/23 11:16 11/13/23 11:16 Temperature Temperature Source Pulse Rate 87 Respiratory Rate Blood Pressure 124/73 H BP Systolic 124 BP Diastolic 73 Pulse Ox 98 11/13/23 11:16 11/13/23 11:16 11/13/23 11:16 Temperature 98.4 F Temperature Source Temporal Pulse Rate Respiratory Rate 16 Blood Pressure BP Systolic BP Diastolic Pulse Ox 11/13/23 14:47 11/13/23 14:47 11/13/23 14:47 Temperature Temperature Source Tympanic Pulse Rate 62 Respiratory Rate Blood Pressure 122/74 H BP Systolic 122 BP Diastolic 74 Pulse Ox 11/13/23 14:47 11/13/23 14:47 11/13/23 14:47 Temperature 97.5 F L Temperature Source Pulse Rate 62 Respiratory Rate 20 H Blood Pressure BP Systolic BP Diastolic Pulse Ox 11/13/23 15:49 11/13/23 15:49 11/13/23 15:49 Temperature Temperature Source Pulse Rate 75 Respiratory Rate Blood Pressure 126/60 H BP Systolic 126 BP Diastolic 60 Pulse Ox 100 11/13/23 15:49 11/13/23 15:49 11/13/23 15:49 Temperature 96.5 F L Temperature Source Tympanic Pulse Rate Respiratory Rate 16 Blood Pressure BP Systolic BP Diastolic Pulse Ox 11/13/23 15:54 11/13/23 15:54 11/13/23 15:59 Temperature Temperature Source Pulse Rate 82 74 Respiratory Rate Blood Pressure BP Systolic BP Diastolic Pulse Ox 100 11/13/23 15:59 11/13/23 16:04 11/13/23 16:04 Temperature Temperature Source Tympanic Pulse Rate 74 Respiratory Rate Blood Pressure BP Systolic BP Diastolic Pulse Ox 100 11/13/23 16:04 11/13/23 16:04 11/13/23 16:04 Temperature 97.0 F L Temperature Source Pulse Rate Respiratory Rate 15 Blood Pressure BP Systolic BP Diastolic Pulse Ox 100 11/13/23 16:05 11/13/23 16:05 11/13/23 16:06 Temperature Temperature Source Pulse Rate 97 82 Respiratory Rate Blood Pressure 107/56 L BP Systolic 107 BP Diastolic 56 Pulse Ox 11/13/23 16:06 11/13/23 16:19 11/13/23 16:19 Temperature Temperature Source Pulse Rate 88 Respiratory Rate Blood Pressure 112/64 BP Systolic 112 BP Diastolic 64 Pulse Ox 87 11/13/23 16:19 11/13/23 16:19 11/13/23 16:19 Temperature 97.3 F L Temperature Source Tympanic Pulse Rate Respiratory Rate 16 Blood Pressure BP Systolic BP Diastolic Pulse Ox 11/13/23 16:34 11/13/23 16:34 11/13/23 16:49 Temperature Temperature Source Pulse Rate 78 Respiratory Rate Blood Pressure 114/65 116/67 BP Systolic 114 116 BP Diastolic 65 67 Pulse Ox 11/13/23 16:49 11/13/23 16:49 11/13/23 16:49 Temperature Temperature Source Tympanic Pulse Rate 76 Respiratory Rate 17 Blood Pressure BP Systolic BP Diastolic Pulse Ox 11/13/23 16:49 11/13/23 17:04 11/13/23 17:04 Temperature 97.0 F L Temperature Source Pulse Rate 68 Respiratory Rate Blood Pressure 120/62 BP Systolic 120 BP Diastolic 62 Pulse Ox 11/13/23 17:04 11/13/23 17:04 11/13/23 17:04 Temperature 97.0 F L Temperature Source Tympanic Pulse Rate Respiratory Rate 16 Blood Pressure BP Systolic BP Diastolic Pulse Ox 11/13/23 17:19 11/13/23 17:19 11/13/23 17:19 Temperature Temperature Source Tympanic Pulse Rate 75 Respiratory Rate Blood Pressure 118/65 BP Systolic 118 BP Diastolic 65 Pulse Ox 11/13/23 17:19 11/13/23 17:19 11/13/23 17:34 Temperature 97.0 F L Temperature Source Pulse Rate Respiratory Rate 16 Blood Pressure 113/62 BP Systolic 113 BP Diastolic 62 Pulse Ox 11/13/23 17:34 Temperature Temperature Source Pulse Rate 59 L Respiratory Rate Blood Pressure BP Systolic BP Diastolic Pulse Ox Weight Weight: 154 lb 5.177 oz Body Mass Index (BMI) 22.8 Physical Exam Const alert, oriented x3 and healthy appearing Constitutional Narrative: uncomfortable with contractions HEENT normocephalic and moist oral mucous membranes Head and Scalp: atraumatic Neck full ROM, no lymphadenopathy, supple and thyroid normal General: trachea midline Thyroid: thyroid normal Lymph Lymphatic: no lymphadenopathy noted Chest inspection of chest normal Resp normal respiratory effort Cardio regular rate GI normal to inspection, nondistended, normoactive bowel sounds, soft to palpation and non-tender Inspection: gravid external exam normal Bimanual Exam - Vag & Uterus: uterus non-tender Manual OB Exam: estimated gestational size appropriate, presentation cephalic, dilated, effaced and station Extremity normal to inspection General Extremity: Negative for edema Skin no rashes or lesions noted Neuro deep tendon reflexes 2+ bilaterally Motor Exam: strength 5/5 throughout and clonus absent Psych mental status grossly normal Labs Labs Labs: Blood Type A POSITIVE Antibody Screen NEGATIVE Hct 38.4 % (37-47) Hgb 13.3 g/dL (12.0-15.0) Syphilis Total Ab Non-reactive Rubella IgG Antibody Reactive (Nonreactive) Hep Bs Antigen Non-Reactive (Nonreactive) Hepatitis C Antibody Non-Reactive (Nonreactive) Hepatitis C Ab (EIA) 0.2 s/co ratio (0.0-0.9) Chlamydia DNA (ASH) Negative (Negative) N.gonorrhoeae DNA (ASH) Negative (Negative) HIV 1&2 Antibody Non-Reactive (Nonreactive) Glucose 1 Hr 50 gm 101 mg/dL (70-140) Rhogam given: No Assessment & Plan (1) Abnormal ultrasound: COMMENT: *needs US 48 hrs after per peds* 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 Will consider if can be done with [facility]. (2) ASCUS of cervix with negative high risk HPV: COMMENT: repeat pap 3 years (2026) (3) Supervision of normal : QUALIFIERS: Normal : other normal Trimester: second trimester Qualified Code(s): Z34.82 - Encounter for supervision of other normal , second trimester COMMENT: PRR , SHAAN 11/04/23, boy PC Su, [place] (4) : QUALIFIERS: Weeks of gestation: 40 weeks Qualified Code(s): Z3A.40 - 40 weeks gestation of COMMENT: Neg GBS. declined genetic & carrier testing; declines AFP (5) Vaginal delivery: COMMENT: MARLENI [place] quick delivery 41 PLAN: Plan admit IAL supportive care
--- NOTE | 2023-11-13 17:40 | EX.PCM.OBRPT ---
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 Will consider if can be done with [facility]. (3) ASCUS of cervix with negative high risk HPV: COMMENT: repeat pap 3 years (2026) (4) Supervision of normal : QUALIFIERS: Normal : other normal Trimester: second trimester Qualified Code(s): Z34.82 - Encounter for supervision of other normal , second trimester COMMENT: PRR , SHAAN 11/04/23, boy PC Su, [place]o (5) : QUALIFIERS: Weeks of gestation: 40 weeks Qualified Code(s): Z3A.40 - 40 weeks gestation of COMMENT: Neg GBS. declined genetic & carrier testing; declines AFP Maternal Data Information SHAAN Calculator Estimated Delivery Date Method Current WG Current Estimate 11/04/23 LMP (Certain) 41w 2d Vaginal Delivery Operative Information Date of Procedure: 11/13/23 Pre-Operative Diagnosis: see a/p diagnoses Post-Operative Diagnosis: same Surgery / Procedure Performed: Spontaneous Vaginal Delivery Type of Anesthesia: None Special Medications: none Estimated Blood Loss: 300 Fluids Replaced: crystalloid Findings Description of Procedure: Patient began pushing while in the bathroom and pushed the head out in presence of nursing staff prior to doctors arrival, followed by the rest of the under the nurses direction the rest of the delivered atraumatically. per nursing staff there was fifteen seconds after delivery of the head prior to delivery of the shoulders and rest of the baby delivered. I as the physician arrived and was out, still attached with delayed cord clamping, and Delayed cord clamping was employed for approximately 60-90 seconds. Cord was clamped and cut and gentle traction was applied to the cord and the placenta delivered spontaneously immediately following it was noted to be intact with three-vessel cord. The perineum and vagina were inspected and noted to have no laceration. EBL was 300. Patient and infant tolerated delivery well. Amniotic Fluid Description: Clear Placental Delivery Description: Spontaneous Placenta Disposition: [facility] Cord Vessel Description: 3 Vessels Cord Entanglement: None Delayed Cord Clamping: Yes Post Vaginal Delivery Medications Given After Delivery: IV Pitocin Episiotomy Description: None Complication Complications: None Procedures Urinary/Genital [id number]: [id number] Vaginal Delivery [facility]
--- NOTE | 2023-11-13 17:50 | DCINST_ITS ---
Discharge Instructions Diet Discharge Diet: No restrictions Activity Discharge Activity: Return to Normal Activity, May Not Drive (while taking narcotic pain medications.) and May Shower May resume sexual activity in: 4-6 weeks Dressing / Incision Call your doctor if your incision/area has: Continuous Slow Oozing, Sudden Increased Bleeding, Increased Pain/ Swelling, Increased Redness and Foul Smelling Discharge Follow Up Care Please Follow Up With: Rosalinda Frank MD When: Call [phone] to make an appointment with your doctor in 6 weeks. If you had elevated blood pressure or 4th degree laceration, you will need to be seen in 2 weeks. Test Results: Test results from this visit will be discussed in further detail at your follow- up appointment, if applicable. Discharge Plan Admission Admit Date/Time: 11/13/23 12:14 Attending Provider: Rosalinda Frank Primary Care Provider: Care PhysicianMaryann Primary Discharge Orders/Prescriptions Prescriptions: No Action PNV no.295-[id number] 400 mcg-35 mg- 25 mg-5 mg tablet,chewable 1 tab PO DAILY Referrals / Follow Up: Care Physician,No Primary [Primary Care Provider] - Disposition Disposition (needs filled in before D/C Order can be placed): Home, Self Care
[2023-11-14 03:50] VITALS: BP 113/63; PULSE 76; RESP 16
--- NOTE | 2023-11-14 07:19 | PN.OBGYN_ITS ---
Subjective Subjective Patient doing well without complaints. Tolerating PO. Ambulating and voiding without difficulty. Feeding well. Denies chest pain, shortness of breath, calf pain/swelling, fevers, chills, lightheadedness. Objective Data Objective Data Vital Signs: Vital Signs Temp Pulse Resp BP Pulse Ox 98.0 F 76 16 113/63 87 11/13/23 23:05 11/14/23 03:50 11/14/23 03:50 11/14/23 03:50 11/13/23 16:06 Weight: 154 lb 5.177 oz Body Mass Index (BMI) 22.8 Intake & Output: Intake and Output for Last 24 Hours 11/12/23 11/13/23 11/14/23 23:59 23:59 23:59 Intake Total 500 / 500 Output Total 600 / 600 Balance -100 / -100 Lab / Micro Data Attestation: I reviewed the patient's lab results. 11/13/23 12:00 Labs: Laboratory Results - last 24 hr 11/13/23 11:31: Vag Amniotic Fld Detect POSITIVE H 11/13/23 12:00: WBC 8.5, RBC 4.05 L, Hgb 13.3, Hct 38.4, MCV 94.8, MCH 32.8 H, MCHC 34.6, RDW Std Deviation 45.2 H, RDW Coeff of Brooks 13.0, Plt Count 141 L, MPV 11.5, Immature Gran % (Auto) 0.400, Neut % (Auto) 74.5 H, Lymph % (Auto) 17.6 L, [place] % (Auto) 6.0, Eos % (Auto) 1.3, Baso % (Auto) 0.2, Absolute Neuts (auto) 6.3, Absolute Lymphs (auto) 1.50, Nucleated RBC % 0, Syphilis Total Ab Non- reactive, Blood Type A POSITIVE, Antibody Screen NEGATIVE ROS Constitutional Constitutional: Reports systems reviewed and no addt'l complaints, except as documented; Denies anorexia or headache(s) Cardiovascular Cardiovascular: Reports systems reviewed and no addt'l complaints, except as documented; Denies dizziness, dyspnea, nausea or tachypnea Respiratory/Chest Respiratory/Chest: Reports systems reviewed and no addt'l complaints, except as documented; Denies cough, dyspnea, shortness of breath at rest or tachypnea Gastrointestinal Gastrointestinal: Reports systems reviewed and no addt'l complaints, except as documented; Denies abdominal pain, constipation or nausea Genitourinary Genitourinary: Reports systems reviewed and no addt'l complaints, except as documented; Denies burning urination, difficulty urinating, dysuria, urinary frequency or urinary incontinence Musculoskeletal Musculoskeletal: Reports systems reviewed and no addt'l complaints, except as documented Integumentary Integumentary: Reports systems reviewed and no addt'l complaints, except as documented Neurologic Neurologic: Reports systems reviewed and no addt'l complaints, except as documented; Denies abnormal speech, dizziness or headache(s) Psychiatric Psychiatric: Reports systems reviewed and no addt'l complaints, except as documented Endocrine Endocrinology: Reports systems reviewed and no addt'l complaints, except as documented Hematologic/Lymphatic Hematologic/Lymphatic: Reports systems reviewed and no addt'l complaints, except as documented Physical Exam Const alert, oriented x3 and no apparent distress Neck full ROM Resp normal respiratory effort, normal air movement and no retractions Effort and Inspection: able to speak in complete sentences and symmetric chest movement GI soft to palpation Bladder / Kidney Exam: bladder normal to palpation Uterus Palpation: uterus fundus firm Extremity normal to inspection and full ROM Psych mental status grossly normal, thought process normal and cooperative Assessment & Plan (1) Vaginal delivery: COMMENT: SM gladys Hutchison quick delivery 41 PLAN: s/p PPD # 1 1. routine post delivery care 2. breast feeding- support given 3. rh positive 4. 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 Will consider if can be done with [facility]. (3) ASCUS of cervix with negative high risk HPV: COMMENT: repeat pap 3 years (2026) (4) Supervision of normal : QUALIFIERS: Normal : other normal T rimester: second trimester Qualified Code(s): Z34.82 - Encounter for supervision of other normal , second trimester COMMENT: PRR , SHAAN 11/04/23, boy PC Su, [place] Arnoldo (5) : QUALIFIERS: Weeks of gestation: 40 weeks Qualified Code(s): Z 3A.40 - 40 weeks gestation of COMMENT: Neg GBS. declined genetic & carrier testing; declines AFP (6) Pectus excavatum: Charges/Coding Multi Select Codes Urinary/Genital Urinary/Genital CPT Codes: No Charge
[2023-11-14 08:00] VITALS: BP 126/78; PULSE 73; RESP 14; TEMP 36.7
[2023-11-14 12:00] VITALS: BP 104/64; PULSE 77; RESP 16; TEMP 36.6; O2SAT 96
--- NOTE | 2023-11-14 14:56 | NURSING ---
student charting reviewed
[2023-11-14 15:52] VITALS: BP 113/78; PULSE 70; RESP 16; TEMP 36.7; O2SAT 98
[2023-11-14 17:29] VITALS: BP 113/76; PULSE 75; RESP 16; TEMP 36.7; O2SAT 98
[2023-11-14 20:23] VITALS: BP 116/80; PULSE 78; RESP 16; TEMP 36.7
[2023-11-15 02:55] VITALS: BP 118/58; PULSE 56; RESP 16
--- NOTE | 2023-11-15 07:47 | PCM.PN.OB ---
Subjective Subjective Patient doing well without complaints. Tolerating PO. Ambulating and voiding without difficulty. Feeding well. Denies chest pain, shortness of breath, calf pain/swelling, fevers, chills, lightheadedness. Objective Data Objective Data Vital Signs: Vital Signs Temp Pulse Resp BP Pulse Ox O2 Del Method 98.1 F 56 L 16 118/58 L 98 Room Air 11/14/23 20:23 11/15/23 02:55 11/15/23 02:55 11/15/23 02:55 11/14/23 17:29 11/14/23 17:29 Oxygen Delivery Method Room Air Weight: 154 lb 5.177 oz Body Mass Index (BMI) 22.8 Intake & Output: Intake and Output for Last 24 Hours 11/13/23 11/14/23 11/15/23 23:59 23:59 23:59 Intake Total 500 / 500 Output Total 600 / 600 Balance -100 / -100 Lab / Micro Data 11/13/23 12:00 Physical Exam Const alert and oriented x3 HEENT normocephalic Eyes PERRL Neck full ROM Resp normal respiratory effort GI soft to palpation GI Narrative: FF below U Assessment & Plan (1) Vaginal delivery: COMMENT: SM boy [place] quick delivery 41 PLAN: Plan s/p PPD # 2 1. routine post delivery care 2. breast feeding- support given 3. rh positive 4. rubella immune
[2023-11-15 08:06] VITALS: BP 115/79; PULSE 98; RESP 14; TEMP 36.4; O2SAT 98
[2023-11-15 14:52] VITALS: BP 111/74; PULSE 87; RESP 16; TEMP 36.6; O2SAT 96
== END 2023-11-15 18:29 | disposition home or self-care (01) | DRG 807 ==
LOC: WP 12:35
PROVIDERS: Admitting Provider Obstetrics & Gynecology; Referring Provider Obstetrics & Gynecology; Visit Provider Obstetrics & Gynecology
DX: O48.0 Post-term pregnancy (principal); Z37.0 Single live birth; O99.893 Other specified diseases and conditions complicating puerperium; Q67.6 Pectus excavatum; Z3A.40 40 weeks gestation of pregnancy
CPT/HCPCS: 59050; 84112; 85025; 86780; 86850; 86900; 86901; 99221; G0378